=== PATIENT | male | born 1935 | race African-American/Black ===

== ENCOUNTER 2021-04-29 18:08 | Inpatient (IN) | payer OTHER ==
[~2021-04-29] VITALS: Ht 172.7 cm; Wt 89.3 kg
[~2021-04-29 18:08] MED LIST: ASPI-886 PO; BACL10TA PO; CHOL200074 PO; DOCU100C28 PO; DRON2.5C PO; ENOX40DI3 SQ; LISI-517 PO; LORA-169 PO; METF500T16 PO; MULT-245 PO; PANT40GR PO
--- NOTE | 2021-04-29 19:12 | PHYS DOC ---
Past Medical History Past Medical History: Diabetes-Type II, Hypertension Additional Past Medical Histor: Hyperlipidemia,Musc dissuse/atrophy,Quadriplegia,Esophageal Reflux. Past Surgical History: No Surgical History, Other Additional Past Surgical Histo: No surgical hx recorded on [facility] paperwork,pt not able to answer at this time. 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 Patient states for the last 6 days he has had random episodes of vomiting. Patient describes the vomiting as dark brown and liquid. Patient denies any associated abdominal discomfort. Patient also states he has had some very dark stools. correction was concerned about a GI bleed Patient denies any chest pain shortness of breath. Patient has no complaints of nausea at this time. Review of Systems: Review of Systems: Constitutional: Denies fever or chills. [] Eyes: Denies change in visual acuity. [] HENT: Denies nasal congestion or sore throat. [] Respiratory: Denies cough or shortness of breath. [] Cardiovascular: Denies chest pain or edema. [] GI: Denies abdominal pain, , bloody stools or diarrhea. [positive nausea, vomiting] : Denies dysuria. [] Musculoskeletal: Denies back pain or joint pain. [] Integument: Denies rash. [] Neurologic: Denies headache, focal weakness or sensory changes. [] Endocrine: Denies polyuria or polydipsia. [] Lymphatic: Denies swollen glands. [] Psychiatric: Denies depression or anxiety. [] Heart Score: C/O Chest Pain: N/A Risk Factors: Risk Factors: DM, Current or recent (<one month) smoker, HTN, HLP, family history of CAD, obesity. Risk Scores: Score 0 - 3: 2.5% MACE over next 6 weeks - Discharge Home Score 4 - 6: 20.3% MACE over next 6 weeks - Admit for Clinical Observation Score 7 - 10: 72.7% MACE over next 6 weeks - Early Invasive Strategies Allergies: Allergies: Allergies Coded Allergies Type Severity Reaction Last Updated Verified adhesive Allergy Intermediate 06/23/15 Yes terazosin Allergy Intermediate 06/23/15 Yes terazosin HCl Allergy Intermediate 06/23/15 Yes Physical Exam: PE: Constitutional: Well developed, well nourished, no acute distress, non-toxic appearance. [] HENT: Normocephalic, atraumatic, bilateral external ears normal, oropharynx moist, no oral exudates, nose normal. [] Eyes: PERRLA, EOMI, conjunctiva normal, no discharge. [] Neck: Normal range of motion, no tenderness, supple, no stridor. [] Cardiovascular:Heart rate regular rhythm, no murmur [] Lungs & Thorax: Bilateral breath sounds clear to auscultation [] Abdomen: Bowel sounds normal, soft, no tenderness, no masses, no pulsatile masses. [] Skin: Warm, dry, no erythema, no rash. [] Back: No tenderness, no CVA tenderness. [] Extremities: No tenderness, no cyanosis, no clubbing, ROM intact, no edema. [] Neurologic: Alert and oriented X 3, normal motor function, normal sensory function, no focal deficits noted. [] Psychologic: Affect normal, judgement normal, mood normal. [] Current Patient Data: Vital Signs: Vital Signs Date Time Temp Pulse Resp B/P (MAP) Pulse Ox O2 Delivery O2 Flow Rate FiO2 04/29/21 18:10 98.2 88 20 147/94 (111) 100 Room Air 98.2 EKG: EKG: [] Radiology/Procedures: Radiology/Procedures: [] Course & Med Decision Making: Course & Med Decision Making Pertinent Labs and Imaging studies reviewed. (See chart for details) [] Patient was evaluated for chief complaint. Patient has no complaints of pain. Patient states random episodes of nausea and vomiting. Lab work patient found to have creatinine of 2.6 previous creatinines have been within normal limits. Rectal exam performed Hemoccult negative. Patient's hemoglobin is stable. Treatment included IV fluids Protonix and Protonix drip. Patient admitted to the hospitalist for further evaluation and treatment Raúlon Disclaimer: Shanell Disclaimer: This electronic medical record was generated, in whole or in part, using a voice recognition dictation system. Departure Departure Impression: Primary Impression: Acute renal failure syndrome Additional Impression: Nausea and vomiting Disposition: ADMITTED INPATIENT Admitting Physician: HIMS Referrals: JULIANN DELGADILLO MD (PCP) AFIA CLEMENTS DO Apr 29, 2021 19:12
[2021-04-29 19:22] LABS: BASO % 0 % (0-3); EOS # 0.4 x10^3/uL (0.0-0.7); EOS % 4 % (0-3); HEMATOCRIT 32.3 % (39.0-53.0); HEMOGLOBIN 10.8 g/dL (13.0-17.5); LYMPH # 2.7 x10^3/uL (1.0-4.8); LYMPH % 25 % (24-48); MEAN CORPUSCULAR HEMOGLOBIN 31 pg (25-35); MEAN CORPUSCULAR HGB CONC 34 g/dL (31-37); MEAN CORPUSCULAR VOLUME 91 fL (79-100); MONO % 10 % (0-9); NEUT # 6.5 x10^3/uL (1.8-7.7); NEUT % 61 % (31-73); PLATELET COUNT 254 x10^3/uL (140-400); RED BLOOD COUNT 3.55 x10^6/uL (4.30-5.70); RED CELL DISTRIBUTION WIDTH 14.6 % (11.5-14.5); WHITE BLOOD COUNT 10.7 x10^3/uL (4.0-11.0)
[2021-04-29 19:24] LABS: CALCIUM 9.4 mg/dL (8.5-10.1); CREATININE 2.6 mg/dL (0.7-1.3); GFR 28.7; POTASSIUM 4.3 mmol/L (3.5-5.1)
[2021-04-29 19:29] LABS: ALBUMIN 3.6 g/dL (3.4-5.0); ALBUMIN/GLOBULIN RATIO 0.9 (1.0-1.7); TOTAL BILIRUBIN 0.1 mg/dL (0.2-1.0); TOTAL PROTEIN 7.6 g/dL (6.4-8.2)
[2021-04-29] MEDS ORDERED: PANTOPRAZOLE IV PUSH 40 MG VIAL. IVP ONE (20:45)
[2021-04-29 21:24] LABS: FECAL OB PT NEGATIVE (NEG)
[2021-04-29] MEDS: PANTOPRAZOLE SODIUM IV DRIP 80 MG in IV NORMAL SALINE 100ML 100 ML IV SCH (21:28)
[2021-04-29] MEDS ORDERED: ONDANSETRON PF 4 MG/2 ML VIAL. IVP PRN (21:45)
[2021-04-29] MEDS ORDERED: IV NORMAL SALINE 1000ML BAG 1,000 ML IV ONE (22:00)
--- NOTE | 2021-04-29 22:27 | EKG ---
[facility] [address] [place] [address] Test Date: 2021-04-29 Test Time: 18:40:59 Pat Name: TAWANA NETTLES Department: Room: Gender: M Medical Technologist Chief: : 1935 Requested By: AFIA CLEMENTS Order Number: [id number] Reading MD: Measurements Intervals Weinert Rate: 84 P: 55 OK: 192 QRS: 23 QRSD: 84 T: 98 QT: 372 QTc: 443 Interpretive Statements SINUS RHYTHM T ABNORMALITY IN HIGH LATERAL LEADS ABNORMAL ECG RI6.02 No previous ECG available for comparison
[2021-04-29 23:35] VITALS: BP 159/71
[2021-04-30] MEDS ORDERED: ASCO500C PO (00:40)
[2021-04-30] MEDS ORDERED: METF500T16 PO (00:40)
[2021-04-30] MEDS ORDERED: FAMO20TA5 PO (00:40)
[2021-04-30] MEDS ORDERED: ZOLP10TA PO (00:40)
[2021-04-30] MEDS ORDERED: ONDA4TAB7 PO (00:40)
[2021-04-30] MEDS ORDERED: CRAN425C3 PO (00:40)
[2021-04-30] MEDS ORDERED: HYDR-2145 PO (00:40)
[2021-04-30] MEDS ORDERED: FERR325T14 PO (00:40)
[2021-04-30] MEDS ORDERED: SENN8.8S13 PO (00:40)
[2021-04-30] MEDS ORDERED: MULT-246 PO (00:40)
[2021-04-30] MEDS: IV NORMAL SALINE 1000ML BAG 1,000 ML IV SCH ×2 (00:46→13:48)
--- NOTE | 2021-04-30 02:16 | NUR ---
at 04/29/21 2335 patient admitted to 406 from ED. Plan of care discussed with patient and verbalized understanding.
[2021-04-30 03:27] VITALS: BP 140/68
[2021-04-30] MEDS: PANTOPRAZOLE SODIUM IV DRIP 80 MG in IV NORMAL SALINE 100ML 100 ML IV SCH (06:54)
[2021-04-30 07:27] VITALS: BP 147/63
[2021-04-30] MEDS ORDERED: ZOLPIDEM 5 MG TABLET. PO PRN (08:00)
[2021-04-30 08:30] LABS: BASO % 0 % (0-3); EOS # 0.4 x10^3/uL (0.0-0.7); EOS % 5 % (0-3); HEMATOCRIT 30.6 % (39.0-53.0); HEMOGLOBIN 10.1 g/dL (13.0-17.5); LYMPH # 2.9 x10^3/uL (1.0-4.8); LYMPH % 32 % (24-48); MEAN CORPUSCULAR HEMOGLOBIN 30 pg (25-35); MEAN CORPUSCULAR HGB CONC 33 g/dL (31-37); MEAN CORPUSCULAR VOLUME 92 fL (79-100); MONO # 0.9 x10^3/uL (0.0-1.1); MONO % 10 % (0-9); NEUT # 4.7 x10^3/uL (1.8-7.7); NEUT % 53 % (31-73); PLATELET COUNT 221 x10^3/uL (140-400); RED BLOOD COUNT 3.33 x10^6/uL (4.30-5.70)
[2021-04-30 08:48] LABS: ALBUMIN 3.1 g/dL (3.4-5.0); ALBUMIN/GLOBULIN RATIO 0.9 (1.0-1.7); CALCIUM 8.7 mg/dL (8.5-10.1); CREATININE 2.5 mg/dL (0.7-1.3); POTASSIUM 4.2 mmol/L (3.5-5.1); TOTAL BILIRUBIN 0.2 mg/dL (0.2-1.0); TOTAL PROTEIN 6.7 g/dL (6.4-8.2)
[2021-04-30] MEDS ORDERED: FAMOTIDINE 20 MG TABLET. PO SCH (09:00)
--- NOTE | 2021-04-30 09:24 | PDOC2 ---
GI CONSULT Date of Service: DATE: 04/30/21 TIME: 09:23 Reason For Consult: eval GI bleed, n/v, dark stool HPI: HPI: 85 y/o male who reports h/o short-term memory loss. Apparently sent to ER from facility for "dark stools for 2 months." Also mention of vomiting. Labs note Hgb 10.8, MCV 91, BUN 38, Cr 2.6, Hemoccult negative. Summary list includes famotidine and iron. He is eating eggs, toast, and durbin this morning and has PPI drip ordered. No GI concerns per nurse including dark stool or n/v. Pt reports lack of smell and taste x 1 week, some decreased appetite w/ age, and weight loss of 2018 "since the COVID." Also reports "dark brown" stool QOD x 1 week and sometimes vomiting of "liquid" - details unclear, mentions "about twice weekly." H/o reflux - none for awhile. Denies dysphagia, hematemesis, abd pain, diarrhea, constipation, hematochezia, and melena. EGD by Dr. Schulz in 2013 showed erosive esophagitis, mild gastritis, and duodenal ulcers. Path unavailable. Pt reports normal colonoscopy at this facility in the past. Denies GB, liver, and pancreas history. H/o SBO (I believe resolved w/o surgery). 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 Reports was vaccinated for COVID, no test here. Gets out of bed only w/ assistance. PMH: PMH: per chart: CVA, HTN, HLD, COPD, prostate cancer, UTI, DM, MRSA SPC FH: Family History: No pertinent hx Social History: Smoke: Quit ROS: GEN: Denies fevers, chills, sweats HEENT: +lack of smell and taste CV: Denies chest pain RESP: Denies shortness of air, cough GI: Per HPI : Denies hematuria, dysuria ENDO: +weight loss NEURO: +memory loss MSK: +weakness SKIN: Denies jaundice, pruritus Vitals: Vitals: Vital Signs Date Time Temp Pulse Resp B/P (MAP) Pulse Ox O2 Delivery O2 Flow Rate FiO2 04/30/21 07:27 98.4 71 18 147/63 (91) 95 Room Air 98.4 Labs: Labs: Laboratory Tests Test 04/29/21 19:00 04/29/21 21:10 04/30/21 08:10 White Blood Count 10.7 x10^3/uL (4.0-11.0) 9.0 x10^3/uL (4.0-11.0) Red Blood Count 3.55 x10^6/uL (4.30-5.70) 3.33 x10^6/uL (4.30-5.70) Hemoglobin 10.8 g/dL (13.0-17.5) 10.1 g/dL (13.0-17.5) Hematocrit 32.3 % (39.0-53.0) 30.6 % (39.0-53.0) Mean Corpuscular Volume 91 fL (79-100) 92 fL (79-100) Mean Corpuscular Hemoglobin 31 pg (25-35) 30 pg (25-35) Mean Corpuscular Hemoglobin Concent 34 g/dL (31-37) 33 g/dL (31-37) Red Cell Distribution Width 14.6 % (11.5-14.5) 15.0 % (11.5-14.5) Platelet Count 254 x10^3/uL (140-400) 221 x10^3/uL (140-400) Neutrophils (%) (Auto) 61 % (31-73) 53 % (31-73) Lymphocytes (%) (Auto) 25 % (24-48) 32 % (24-48) Monocytes (%) (Auto) 10 % (0-9) 10 % (0-9) Eosinophils (%) (Auto) 4 % (0-3) 5 % (0-3) Basophils (%) (Auto) 0 % (0-3) 0 % (0-3) Neutrophils # (Auto) 6.5 x10^3/uL (1.8-7.7) 4.7 x10^3/uL (1.8-7.7) Lymphocytes # (Auto) 2.7 x10^3/uL (1.0-4.8) 2.9 x10^3/uL (1.0-4.8) Monocytes # (Auto) 1.0 x10^3/uL (0.0-1.1) 0.9 x10^3/uL (0.0-1.1) Eosinophils # (Auto) 0.4 x10^3/uL (0.0-0.7) 0.4 x10^3/uL (0.0-0.7) Basophils # (Auto) 0.0 x10^3/uL (0.0-0.2) 0.0 x10^3/uL (0.0-0.2) Sodium Level 140 mmol/L (136-145) 139 mmol/L (136-145) Potassium Level 4.3 mmol/L (3.5-5.1) 4.2 mmol/L (3.5-5.1) Chloride Level 105 mmol/L (98-107) 107 mmol/L (98-107) Carbon Dioxide Level 24 mmol/L (21-32) 22 mmol/L (21-32) Anion Gap 11 (6-14) 10 (6-14) Blood Urea Nitrogen 38 mg/dL (8-26) 37 mg/dL (8-26) Creatinine 2.6 mg/dL (0.7-1.3) 2.5 mg/dL (0.7-1.3) Estimated GFR (Cockcroft-Gault) 28.7 30.0 BUN/Creatinine Ratio 15 (6-20) 15 (6-20) Glucose Level 74 mg/dL (70-99) 87 mg/dL (70-99) Calcium Level 9.4 mg/dL (8.5-10.1) 8.7 mg/dL (8.5-10.1) Total Bilirubin 0.1 mg/dL (0.2-1.0) 0.2 mg/dL (0.2-1.0) Aspartate Amino Transf (AST/SGOT) 9 U/L (15-37) 9 U/L (15-37) Alanine Aminotransferase (ALT/SGPT) 22 U/L (16-63) 19 U/L (16-63) Alkaline Phosphatase 86 U/L (46-116) 72 U/L (46-116) Troponin I Quantitative < 0.017 ng/mL (0.000-0.055) Total Protein 7.6 g/dL (6.4-8.2) 6.7 g/dL (6.4-8.2) Albumin 3.6 g/dL (3.4-5.0) 3.1 g/dL (3.4-5.0) Albumin/Globulin Ratio 0.9 (1.0-1.7) 0.9 (1.0-1.7) Stool Occult Blood Negative (NEG) Allergies: Coded Allergies: adhesive (Verified Allergy, Intermediate, 06/23/15) All allergies and meds per [place] paperwork. Unk if reaction or allergy. terazosin (Verified Allergy, Intermediate, 06/23/15) Per [place] paperwork, unknow if pt has allergic reaction or adverse reaction. terazosin HCl (Verified Allergy, Intermediate, 06/23/15) Unknown if pt has allergic reaction or adverse reaction. Obtaining meds and allergies per [place] paperwork. Medications: Current Medications Medications (Trade) Dose Ordered Sig/Gail Route PRN Reason Start Time Stop Time Status Last Admin Dose Admin Pantoprazole Sodium (PROTONIX VIAL for IV PUSH) 80 mg 1X ONCE IVP 04/29/21 20:45 04/29/21 20:46 DC 04/29/21 21:27 Pantoprazole Sodium 80 mg/ Sodium Chloride 100 ml @ 10 mls/hr Q10H IV 04/29/21 20:45 05/02/21 20:44 04/30/21 06:54 Sodium Chloride 1,000 ml @ 1,000 mls/hr 1X ONCE IV 04/29/21 22:00 04/29/21 22:59 DC 04/29/21 21:27 Sodium Chloride 1,000 ml @ 75 mls/hr [id number] IV 04/29/21 22:00 04/30/21 21:59 04/30/21 00:46 Famotidine (Pepcid) 20 mg DAILY PO 04/30/21 09:00 04/30/21 08:51 Imaging: Imaging: none this admission PE: GEN: NAD HEENT: Atraumatic, PERRL LUNGS: CTAB HEART: RRR ABD: NABS, S/ND/NT EXTREMITY: generalized weakness SKIN: No rashes, no jaundice NEURO/PSYCH: A & O 3 A/P: A/P: "Dark stool" and vomiting - not an issue since admission Normocytic anemia, EMILY, Hemoccult negative - anemia noted in past ([id number] last labs here) - ?on iron H/o GERD, PUD - ?on H2 isis Decreased appetite, weight loss - vague history EGD by Dr. Schulz in 2013 showed erosive esophagitis, mild gastritis, and duodenal ulcers. Path unavailable. CRC screen - reportedly normal in the past DM -- Eating regular diet. Will check anemia parameters. 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 Apparently on iron as outpt, considering restarting. Observe GI-kowalski, consider outpt follow-up/scopes. Note nephrology is asked to see. DC per primary. TESSY MOTA Apr 30, 2021 09:24
--- NOTE | 2021-04-30 10:19 | PDOC1 ---
History and Physical Date of Service: DOS: DATE: 04/30/21 TIME: 10:19 Chief Complaint: Problems: (1) Acute renal failure syndrome (2) Nausea and vomiting Chief Complain: Nausea vomiting History of Present Illness: HPI: Patient is an 85-year-old male [facility] due to concern for GI bleed. Patient reports that over the past week or so he has been having multiple episodes of nausea and vomiting. Unable to tolerate a notable amount of p.o. intake. Was also having diarrhea with stools darker than usual. Denying any sort of abdominal discomfort. Unknown if labs performed at his longterm however was transferred here due to concern for GI bleed. In emergency room hemoglobin was normal. He was provided Protonix and IV fluids. When evaluated at bedside this morning patient was in bed eating breakfast. Hemoglobin been stable since presentation. Found to have elevated creatinine baseline unknown to me. Consulting to GI and nephrology. He is denying any headache, vision changes, dizziness, chest pain, shortness of breath, abdominal pain, dysuria. Past Medical/Surgical History: PMH/PSH: Type 2 diabetes, hypertension, CVA with residual weakness Allergies: Allergies: Coded Allergies: adhesive (Verified Allergy, Intermediate, 06/23/15) All allergies and meds per [place] paperwork. Unk if reaction or allergy. terazosin (Verified Allergy, Intermediate, 06/23/15) Per [place] paperwork, unknow if pt has allergic reaction or adverse reaction. terazosin HCl (Verified Allergy, Intermediate, 06/23/15) Unknown if pt has allergic reaction or adverse reaction. Obtaining meds and allergies per [place] paperwork. Family History: Family History: Noncontributory Social History: Social History: No alcohol tobacco or drug use Current Medications: Current Medications Current Medications Pantoprazole Sodium (PROTONIX VIAL for IV PUSH) 80 mg 1X ONCE IVP Last administered on 04/29/21at 21:27; Start 04/29/21 at 20:45; Stop 04/29/21 at 20:46; Status DC Pantoprazole Sodium 80 mg/ Sodium Chloride 100 ml @ 10 mls/hr Q10H IV Last administered on 04/30/21at 06:54; Start 04/29/21 at 20:45; Stop 04/30/21 at 09:28; Status DC Sodium Chloride 1,000 ml @ 1,000 mls/hr 1X ONCE IV Last administered on 04/29/21at 21:27; Start 04/29/21 at 22:00; Stop 04/29/21 at 22:59; Status DC Ondansetron HCl (Zofran) 4 mg PRN Q8HRS PRN IVP NAUSEA/VOMITING 1ST CHOICE; Start 04/29/21 at 21:45; Stop 04/30/21 at 21:44 Sodium Chloride 1,000 ml @ 75 mls/hr [id number] IV Last administered on 04/30/21at 00:46; Start 04/29/21 at 22:00; Stop 04/30/21 at 21:59 Famotidine (Pepcid) 20 mg DAILY PO Last administered on 04/30/21at 08:51; Start 04/30/21 at 09:00; Stop 04/30/21 at 09:28; Status DC Zolpidem Tartrate (Ambien) 5 mg PRN QHS PRN PO INSOMNIA; Start 04/30/21 at 08:00 Pantoprazole Sodium (Protonix) 40 mg DAILYAC PO ; Start 05/01/21 at 07:30 Active Scripts Active Reported Zofran (Ondansetron Hcl) 4 Mg Tablet 1 Tab PO PRN Q6-8HRS Senna (Sennosides) 8.8 Mg/5 Ml Syrup 8.8 Mg PO DAILY PRN Multi-Vitamin Daily (Multivitamin) 1 Each Tablet 1 Tab PO DAILY 30 Days Metformin Hcl 500 Mg Tablet 500 Mg PO TIDWMEALS Hydrochlorothiazide Tablet (Hydrochlorothiazide) 25 Mg Tablet 25 Mg PO DAILY Ferrous Sulfate 325 Mg Tablet 1 Tab PO DAILY Famotidine 20 Mg Tablet 20 Mg PO DAILY Cranberry (Cranberry Extract) 425 Mg Capsule 425 Mg PO BID Vitamin C (Ascorbic Acid) 500 Mg Capsule.er 1 Cap PO BID 30 Days Ambien (Zolpidem Tartrate) 10 Mg Tablet 10 Mg PO PRN QHS PRN ROS: Review of Systems Review of System Negative unless in HPI Physical Exam: Vital Signs: Vital Signs Date Time Temp Pulse Resp B/P (MAP) Pulse Ox O2 Delivery O2 Flow Rate FiO2 04/30/21 07:27 98.4 71 18 147/63 (91) 95 Room Air 98.4 Physcial Exam: GEN: No apparent distress. Alert and oriented HEENT: Normal cephalic, atraumatic, external auditory canals are patent EYES: Extraocular muscles are intact, pupil are equally round and reactive to light and accommodation MUSCULOSKELETAL: Limited range of motion ENDOCRINE: No thyromegaly was palpated LYMPHATICS: No cervical chain or axillary nodes were noted HEMATOPOIETIC: No bruising NECK: Supple, no JVD, no thyromegaly was noted LUNGS: Clear to auscultation in all lung han without rhonchi or wheezing HEART: RRR, S1, S2 present. Peripheral pulses intact, no obvious murmurs noted ABDOMEN: Soft, nontender. Positive bowel sounds, no organomegaly, normal bowel sounds EXTREMITIES: Without clubbing, cyanosis, or edema. Pedal pulses intact. Negative Homans sign NEUROLOGIC: Residual deficits from previous CVA present PSYCHIATRIC: Normal affect, normal mood. Stable SKIN: No ulcerations or rashes, good skin turgor, no jaundice VASCULAR: Good capillary refill, neurovascular bundle appears to be intact Labs: Labs: Laboratory Tests Test 04/29/21 19:00 04/29/21 21:10 04/30/21 08:10 White Blood Count 10.7 x10^3/uL (4.0-11.0) 9.0 x10^3/uL (4.0-11.0) Red Blood Count 3.55 x10^6/uL (4.30-5.70) 3.33 x10^6/uL (4.30-5.70) Hemoglobin 10.8 g/dL (13.0-17.5) 10.1 g/dL (13.0-17.5) Hematocrit 32.3 % (39.0-53.0) 30.6 % (39.0-53.0) Mean Corpuscular Volume 91 fL (79-100) 92 fL (79-100) Mean Corpuscular Hemoglobin 31 pg (25-35) 30 pg (25-35) Mean Corpuscular Hemoglobin Concent 34 g/dL (31-37) 33 g/dL (31-37) Red Cell Distribution Width 14.6 % (11.5-14.5) 15.0 % (11.5-14.5) Platelet Count 254 x10^3/uL (140-400) 221 x10^3/uL (140-400) Neutrophils (%) (Auto) 61 % (31-73) 53 % (31-73) Lymphocytes (%) (Auto) 25 % (24-48) 32 % (24-48) Monocytes (%) (Auto) 10 % (0-9) 10 % (0-9) Eosinophils (%) (Auto) 4 % (0-3) 5 % (0-3) Basophils (%) (Auto) 0 % (0-3) 0 % (0-3) Neutrophils # (Auto) 6.5 x10^3/uL (1.8-7.7) 4.7 x10^3/uL (1.8-7.7) Lymphocytes # (Auto) 2.7 x10^3/uL (1.0-4.8) 2.9 x10^3/uL (1.0-4.8) Monocytes # (Auto) 1.0 x10^3/uL (0.0-1.1) 0.9 x10^3/uL (0.0-1.1) Eosinophils # (Auto) 0.4 x10^3/uL (0.0-0.7) 0.4 x10^3/uL (0.0-0.7) Basophils # (Auto) 0.0 x10^3/uL (0.0-0.2) 0.0 x10^3/uL (0.0-0.2) Sodium Level 140 mmol/L (136-145) 139 mmol/L (136-145) Potassium Level 4.3 mmol/L (3.5-5.1) 4.2 mmol/L (3.5-5.1) Chloride Level 105 mmol/L (98-107) 107 mmol/L (98-107) Carbon Dioxide Level 24 mmol/L (21-32) 22 mmol/L (21-32) Anion Gap 11 (6-14) 10 (6-14) Blood Urea Nitrogen 38 mg/dL (8-26) 37 mg/dL (8-26) Creatinine 2.6 mg/dL (0.7-1.3) 2.5 mg/dL (0.7-1.3) Estimated GFR (Cockcroft-Gault) 28.7 30.0 BUN/Creatinine Ratio 15 (6-20) 15 (6-20) Glucose Level 74 mg/dL (70-99) 87 mg/dL (70-99) Calcium Level 9.4 mg/dL (8.5-10.1) 8.7 mg/dL (8.5-10.1) Total Bilirubin 0.1 mg/dL (0.2-1.0) 0.2 mg/dL (0.2-1.0) Aspartate Amino Transf (AST/SGOT) 9 U/L (15-37) 9 U/L (15-37) Alanine Aminotransferase (ALT/SGPT) 22 U/L (16-63) 19 U/L (16-63) Alkaline Phosphatase 86 U/L (46-116) 72 U/L (46-116) Troponin I Quantitative < 0.017 ng/mL (0.000-0.055) Total Protein 7.6 g/dL (6.4-8.2) 6.7 g/dL (6.4-8.2) Albumin 3.6 g/dL (3.4-5.0) 3.1 g/dL (3.4-5.0) Albumin/Globulin Ratio 0.9 (1.0-1.7) 0.9 (1.0-1.7) Stool Occult Blood Negative (NEG) Laboratory Tests Test 04/29/21 19:00 04/29/21 21:10 04/30/21 08:10 White Blood Count 10.7 x10^3/uL (4.0-11.0) 9.0 x10^3/uL (4.0-11.0) Red Blood Count 3.55 x10^6/uL (4.30-5.70) 3.33 x10^6/uL (4.30-5.70) Hemoglobin 10.8 g/dL (13.0-17.5) 10.1 g/dL (13.0-17.5) Hematocrit 32.3 % (39.0-53.0) 30.6 % (39.0-53.0) Mean Corpuscular Volume 91 fL (79-100) 92 fL (79-100) Mean Corpuscular Hemoglobin 31 pg (25-35) 30 pg (25-35) Mean Corpuscular Hemoglobin Concent 34 g/dL (31-37) 33 g/dL (31-37) Red Cell Distribution Width 14.6 % (11.5-14.5) 15.0 % (11.5-14.5) Platelet Count 254 x10^3/uL (140-400) 221 x10^3/uL (140-400) Neutrophils (%) (Auto) 61 % (31-73) 53 % (31-73) Lymphocytes (%) (Auto) 25 % (24-48) 32 % (24-48) Monocytes (%) (Auto) 10 % (0-9) 10 % (0-9) Eosinophils (%) (Auto) 4 % (0-3) 5 % (0-3) Basophils (%) (Auto) 0 % (0-3) 0 % (0-3) Neutrophils # (Auto) 6.5 x10^3/uL (1.8-7.7) 4.7 x10^3/uL (1.8-7.7) Lymphocytes # (Auto) 2.7 x10^3/uL (1.0-4.8) 2.9 x10^3/uL (1.0-4.8) Monocytes # (Auto) 1.0 x10^3/uL (0.0-1.1) 0.9 x10^3/uL (0.0-1.1) Eosinophils # (Auto) 0.4 x10^3/uL (0.0-0.7) 0.4 x10^3/uL (0.0-0.7) Basophils # (Auto) 0.0 x10^3/uL (0.0-0.2) 0.0 x10^3/uL (0.0-0.2) Sodium Level 140 mmol/L (136-145) 139 mmol/L (136-145) Potassium Level 4.3 mmol/L (3.5-5.1) 4.2 mmol/L (3.5-5.1) Chloride Level 105 mmol/L (98-107) 107 mmol/L (98-107) Carbon Dioxide Level 24 mmol/L (21-32) 22 mmol/L (21-32) Anion Gap 11 (6-14) 10 (6-14) Blood Urea Nitrogen 38 mg/dL (8-26) 37 mg/dL (8-26) Creatinine 2.6 mg/dL (0.7-1.3) 2.5 mg/dL (0.7-1.3) Estimated GFR (Cockcroft-Gault) 28.7 30.0 BUN/Creatinine Ratio 15 (6-20) 15 (6-20) Glucose Level 74 mg/dL (70-99) 87 mg/dL (70-99) Calcium Level 9.4 mg/dL (8.5-10.1) 8.7 mg/dL (8.5-10.1) Total Bilirubin 0.1 mg/dL (0.2-1.0) 0.2 mg/dL (0.2-1.0) Aspartate Amino Transf (AST/SGOT) 9 U/L (15-37) 9 U/L (15-37) Alanine Aminotransferase (ALT/SGPT) 22 U/L (16-63) 19 U/L (16-63) Alkaline Phosphatase 86 U/L (46-116) 72 U/L (46-116) Troponin I Quantitative < 0.017 ng/mL (0.000-0.055) Total Protein 7.6 g/dL (6.4-8.2) 6.7 g/dL (6.4-8.2) Albumin 3.6 g/dL (3.4-5.0) 3.1 g/dL (3.4-5.0) Albumin/Globulin Ratio 0.9 (1.0-1.7) 0.9 (1.0-1.7) Stool Occult Blood Negative (NEG) Assessment/Plan Assessment/Plan EMILY likely vasomotor nephropathy, dehydration, nausea vomiting, history of CVA, type 2 diabetes, hypertension -Patient's hemoglobin stable since presentation no sign of GI bleed -Evaluated by GI recommended oral PPI and resuming home iron -Patient with elevated creatinine on presentation and. Unknown baseline. Nephrology consulted -Home meds resumed as indicated -Will go back to facility after discharge -DVT prophylaxis -Diet as tolerated Justifications for Admission Other Justification CHARLEY HAN MD Apr 30, 2021 10:19
[2021-04-30 10:33] VITALS: BP 108/57
--- NOTE | 2021-04-30 12:38 | PDOC2 ---
CONSULT Date of Consult Date of Consult DATE: 04/30/21 TIME: 12:20 Reason for Consult Reason for Consult: EMILY Referring Physician Referring Physician: Dr. 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 Patient states for the last 6 days he has had random episodes of vomiting. Patient describes the vomiting as dark brown and liquid. Patient denies any associated abdominal discomfort. Patient also states he has had some very dark stools. half-way was concerned about a GI bleed He denies any chest pain ,shortness of breath or Cough denies any F/C. Has Suprapubic catheter - reports normal UOP, No foul smell or cloudy urine . Denies any LE edema . denies use of NSAID's. Doesnt know his current meds . [facility] currently denies any N/V, states feeling better . He had Breakfast this morning Reports was vaccinated for COVID Past Medical History Past Medical History CVA, HTN, HLD, COPD, prostate cancer, UTI, DM, MRSA Cardiovascular: HTN, Hyperlipidemia GI: GERD Musculoskeletal: Muscle atrophy Renal/: No pertinent hx Endocrine: Diabetes Past Surgical History Past Surgical History Suprapubic catheter Family History Family History Non contributory Family History: Other Social History Quit Lives: Snf Current Problem List Problem List Problems Medical Problems: (1) Nausea and vomiting Status: Acute Current Medications Current Medications Current Medications Pantoprazole Sodium (PROTONIX VIAL for IV PUSH) 80 mg 1X ONCE IVP Last adminis tered on 04/29/21at 21:27; Start 04/29/21 at 20:45; Stop 04/29/21 at 20:46; Status DC Pantoprazole Sodium 80 mg/ Sodium Chloride 100 ml @ 10 mls/hr Q10H IV Last administered on 04/30/21at 06:54; Start 04/29/21 at 20:45; Stop 04/30/21 at 09:28; Status DC Sodium Chloride 1,000 ml @ 1,000 mls/hr 1X ONCE IV Last administered on 04/29/21at 21:27; Start 04/29/21 at 22:00; Stop 04/29/21 at 22:59; Status DC Ondansetron HCl (Zofran) 4 mg PRN Q8HRS PRN IVP NAUSEA/VOMITING 1ST CHOICE; Start 04/29/21 at 21:45; Stop 04/30/21 at 21:44 Sodium Chloride 1,000 ml @ 75 mls/hr [id number] IV Last administered on 04/30/21at 00:46; Start 04/29/21 at 22:00; Stop 04/30/21 at 21:59 Famotidine (Pepcid) 20 mg DAILY PO Last administered on 04/30/21at 08:51; Start 04/30/21 at 09:00; Stop 04/30/21 at 09:28; Status DC Zolpidem Tartrate (Ambien) 5 mg PRN QHS PRN PO INSOMNIA; Start 04/30/21 at 08:00 Pantoprazole Sodium (Protonix) 40 mg DAILYAC PO ; Start 05/01/21 at 07:30 Active Scripts Active Reported Zofran (Ondansetron Hcl) 4 Mg Tablet 1 Tab PO PRN Q6-8HRS Senna (Sennosides) 8.8 Mg/5 Ml Syrup 8.8 Mg PO DAILY PRN Multi-Vitamin Daily (Multivitamin) 1 Each Tablet 1 Tab PO DAILY 30 Days Metformin Hcl 500 Mg Tablet 500 Mg PO TIDWMEALS Hydrochlorothiazide Tablet (Hydrochlorothiazide) 25 Mg Tablet 25 Mg PO DAILY Ferrous Sulfate 325 Mg Tablet 1 Tab PO DAILY Famotidine 20 Mg Tablet 20 Mg PO DAILY Cranberry (Cranberry Extract) 425 Mg Capsule 425 Mg PO BID Vitamin C (Ascorbic Acid) 500 Mg Capsule.er 1 Cap PO BID 30 Days Ambien (Zolpidem Tartrate) 10 Mg Tablet 10 Mg PO PRN QHS PRN Allergies Allergies: Coded Allergies: adhesive (Verified Allergy, Intermediate, 06/23/15) All allergies and meds per [place] paperwork. Unk if reaction or allergy. terazosin (Verified Allergy, Intermediate, 06/23/15) Per [place] paperwork, unknow if pt has allergic reaction or adverse reaction. terazosin HCl (Verified Allergy, Intermediate, 06/23/15) Unknown if pt has allergic reaction or adverse reaction. Obtaining meds and allergies per [place] paperwork. ROS Review of System As per HPI, rest of the ROS is negative Physical Exam Physical Exam General NAD HEEN OM moist, On RA Neck Supple Lungs CTA , non labored CV S1S2, RRR Abd Soft, NT , obese, BS + Neuro Grossly Normal, AXOx3, No focal deficit Derm No rash Ext No LE edema has Suprapubic catheter , No CVA or S tenderness Psych Cooperative , stable Vital Signs Vital Signs Date Time Temp Pulse Resp B/P (MAP) Pulse Ox O2 Delivery O2 Flow Rate FiO2 04/30/21 10:33 97.5 96 18 108/57 (74) 99 Room Air 97.5 Assessment & Plan EMILY - Vasomotor, admitted with N/V . Supportive care, IVF , avoid Nephrotoxins, strict I/O . Further jones including UA and Renal US if no improvement with IVF ? CKD baseline unknown, baseline Cr in 2012 0.8-0.9, No interval labs. 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 prostate cancer . Catheter changed on 04/12 HTN- on HCTZ per home med list . Hold HCTZ DM - On metformin at home Anemia-/ Chronic- ferrous sulfate listed in home med list Labs Labs Laboratory Tests Test 04/29/21 19:00 04/29/21 21:10 04/30/21 08:10 White Blood Count 10.7 x10^3/uL (4.0-11.0) 9.0 x10^3/uL (4.0-11.0) Red Blood Count 3.55 x10^6/uL (4.30-5.70) 3.29 x10^6/uL (4.30-5.70) Hemoglobin 10.8 g/dL (13.0-17.5) 10.1 g/dL (13.0-17.5) Hematocrit 32.3 % (39.0-53.0) 30.6 % (39.0-53.0) Mean Corpuscular Volume 91 fL (79-100) 92 fL (79-100) Mean Corpuscular Hemoglobin 31 pg (25-35) 30 pg (25-35) Mean Corpuscular Hemoglobin Concent 34 g/dL (31-37) 33 g/dL (31-37) Red Cell Distribution Width 14.6 % (11.5-14.5) 15.0 % (11.5-14.5) Platelet Count 254 x10^3/uL (140-400) 221 x10^3/uL (140-400) Neutrophils (%) (Auto) 61 % (31-73) 53 % (31-73) Lymphocytes (%) (Auto) 25 % (24-48) 32 % (24-48) Monocytes (%) (Auto) 10 % (0-9) 10 % (0-9) Eosinophils (%) (Auto) 4 % (0-3) 5 % (0-3) Basophils (%) (Auto) 0 % (0-3) 0 % (0-3) Neutrophils # (Auto) 6.5 x10^3/uL (1.8-7.7) 4.7 x10^3/uL (1.8-7.7) Lymphocytes # (Auto) 2.7 x10^3/uL (1.0-4.8) 2.9 x10^3/uL (1.0-4.8) Monocytes # (Auto) 1.0 x10^3/uL (0.0-1.1) 0.9 x10^3/uL (0.0-1.1) Eosinophils # (Auto) 0.4 x10^3/uL (0.0-0.7) 0.4 x10^3/uL (0.0-0.7) Basophils # (Auto) 0.0 x10^3/uL (0.0-0.2) 0.0 x10^3/uL (0.0-0.2) Sodium Level 140 mmol/L (136-145) 139 mmol/L (136-145) Potassium Level 4.3 mmol/L (3.5-5.1) 4.2 mmol/L (3.5-5.1) Chloride Level 105 mmol/L (98-107) 107 mmol/L (98-107) Carbon Dioxide Level 24 mmol/L (21-32) 22 mmol/L (21-32) Anion Gap 11 (6-14) 10 (6-14) Blood Urea Nitrogen 38 mg/dL (8-26) 37 mg/dL (8-26) Creatinine 2.6 mg/dL (0.7-1.3) 2.5 mg/dL (0.7-1.3) Estimated GFR (Cockcroft-Gault) 28.7 30.0 BUN/Creatinine Ratio 15 (6-20) 15 (6-20) Glucose Level 74 mg/dL (70-99) 87 mg/dL (70-99) Calcium Level 9.4 mg/dL (8.5-10.1) 8.7 mg/dL (8.5-10.1) Total Bilirubin 0.1 mg/dL (0.2-1.0) 0.2 mg/dL (0.2-1.0) Aspartate Amino Transf (AST/SGOT) 9 U/L (15-37) 9 U/L (15-37) Alanine Aminotransferase (ALT/SGPT) 22 U/L (16-63) 19 U/L (16-63) Alkaline Phosphatase 86 U/L (46-116) 72 U/L (46-116) Troponin I Quantitative < 0.017 ng/mL (0.000-0.055) Total Protein 7.6 g/dL (6.4-8.2) 6.7 g/dL (6.4-8.2) Albumin 3.6 g/dL (3.4-5.0) 3.1 g/dL (3.4-5.0) Albumin/Globulin Ratio 0.9 (1.0-1.7) 0.9 (1.0-1.7) Stool Occult Blood Negative (NEG) Absolute Reticulocyte Count 0.031 x10^6/uL (0.020-0.120) Percent Reticulocyte Count 1.0 % (0.5-2.3) Immature Reticulocyte Fraction 0.40 (0.20-0.60) Iron Level 49 ug/dL (65-175) Total Iron Binding Capacity 257 ug/dL (250-450) Iron Saturation 19 % (15-34) Laboratory Tests Test 04/29/21 19:00 04/29/21 21:10 04/30/21 08:10 White Blood Count 10.7 x10^3/uL (4.0-11.0) 9.0 x10^3/uL (4.0-11.0) Red Blood Count 3.55 x10^6/uL (4.30-5.70) 3.29 x10^6/uL (4.30-5.70) Hemoglobin 10.8 g/dL (13.0-17.5) 10.1 g/dL (13.0-17.5) Hematocrit 32.3 % (39.0-53.0) 30.6 % (39.0-53.0) Mean Corpuscular Volume 91 fL (79-100) 92 fL (79-100) Mean Corpuscular Hemoglobin 31 pg (25-35) 30 pg (25-35) Mean Corpuscular Hemoglobin Concent 34 g/dL (31-37) 33 g/dL (31-37) Red Cell Distribution Width 14.6 % (11.5-14.5) 15.0 % (11.5-14.5) Platelet Count 254 x10^3/uL (140-400) 221 x10^3/uL (140-400) Neutrophils (%) (Auto) 61 % (31-73) 53 % (31-73) Lymphocytes (%) (Auto) 25 % (24-48) 32 % (24-48) Monocytes (%) (Auto) 10 % (0-9) 10 % (0-9) Eosinophils (%) (Auto) 4 % (0-3) 5 % (0-3) Basophils (%) (Auto) 0 % (0-3) 0 % (0-3) Neutrophils # (Auto) 6.5 x10^3/uL (1.8-7.7) 4.7 x10^3/uL (1.8-7.7) Lymphocytes # (Auto) 2.7 x10^3/uL (1.0-4.8) 2.9 x10^3/uL (1.0-4.8) Monocytes # (Auto) 1.0 x10^3/uL (0.0-1.1) 0.9 x10^3/uL (0.0-1.1) Eosinophils # (Auto) 0.4 x10^3/uL (0.0-0.7) 0.4 x10^3/uL (0.0-0.7) Basophils # (Auto) 0.0 x10^3/uL (0.0-0.2) 0.0 x10^3/uL (0.0-0.2) Sodium Level 140 mmol/L (136-145) 139 mmol/L (136-145) Potassium Level 4.3 mmol/L (3.5-5.1) 4.2 mmol/L (3.5-5.1) Chloride Level 105 mmol/L (98-107) 107 mmol/L (98-107) Carbon Dioxide Level 24 mmol/L (21-32) 22 mmol/L (21-32) Anion Gap 11 (6-14) 10 (6-14) Blood Urea Nitrogen 38 mg/dL (8-26) 37 mg/dL (8-26) Creatinine 2.6 mg/dL (0.7-1.3) 2.5 mg/dL (0.7-1.3) Estimated GFR (Cockcroft-Gault) 28.7 30.0 BUN/Creatinine Ratio 15 (6-20) 15 (6-20) Glucose Level 74 mg/dL (70-99) 87 mg/dL (70-99) Calcium Level 9.4 mg/dL (8.5-10.1) 8.7 mg/dL (8.5-10.1) Total Bilirubin 0.1 mg/dL (0.2-1.0) 0.2 mg/dL (0.2-1.0) Aspartate Amino Transf (AST/SGOT) 9 U/L (15-37) 9 U/L (15-37) Alanine Aminotransferase (ALT/SGPT) 22 U/L (16-63) 19 U/L (16-63) Alkaline Phosphatase 86 U/L (46-116) 72 U/L (46-116) Troponin I Quantitative < 0.017 ng/mL (0.000-0.055) Total Protein 7.6 g/dL (6.4-8.2) 6.7 g/dL (6.4-8.2) Albumin 3.6 g/dL (3.4-5.0) 3.1 g/dL (3.4-5.0) Albumin/Globulin Ratio 0.9 (1.0-1.7) 0.9 (1.0-1.7) Stool Occult Blood Negative (NEG) Absolute Reticulocyte Count 0.031 x10^6/uL (0.020-0.120) Percent Reticulocyte Count 1.0 % (0.5-2.3) Immature Reticulocyte Fraction 0.40 (0.20-0.60) Iron Level 49 ug/dL (65-175) Total Iron Binding Capacity 257 ug/dL (250-450) Iron Saturation 19 % (15-34) Review All relevant outside records, renal labs, imaging studies, telemetry/EKG's were reviewed. ARDEN MARIE MD Apr 30, 2021 12:38
--- NOTE | 2021-04-30 12:51 | NUR ---
SW following. Discussed with RN, pt from [facility]. SW unable to reach anyone at [facility] to determine if pt is SNF or meterman care. Pt on room air, renal diet. GI, Nephrology and wound care folliwng. SW will continue to follow.
[2021-04-30] MEDS: NYSTATIN TOPICAL POWDER 15GM BOTTLE. TP SCH ×2 (14:15→20:52)
[2021-04-30 15:00] VITALS: BP 133/58
--- NOTE | 2021-04-30 15:15 | NUR ---
Wound Care Wound Type/Assessment: Consult to eval and treat R groin wound. Scrotum is enlarged, but not indurated, as well as a large, soft mass in the R inguinal area. Pt states that the mass and R groin wound have been present for around 3 years, and have remained unchanged, and are not causing any discomfort or impairing his quality of life. R groin wound is pink, moist, and hypergranulated. The origin of the wound is unknown due to the length of time it has been present, although it is suspected that it likely started as intertrigo and never healed properly. Skin to legs and feet are dry and scaly. No other wounds noted on head to toe. Treatment Recommendations/Plan: R groin: Cleanse and dry. Apply nystatin powder to groin folds BID and place ABD pad to manage moisture. Education provided: Educated on new dressing and pressure ulcer prevention. Offloading surface/device: Purple wedge, turned Left. Heels floated on pillows. Recommended Referrals/Tests: NA Discharge Recommendations for dressings: as above
[2021-04-30 19:00] VITALS: BP 153/77
[2021-04-30 22:38] LABS: BILIRUBIN,URINE NEGATIVE (NEG); CLARITY,URINE CLOUDY; COLOR,URINE YELLOW; NITRITE,URINE POSITIVE (NEG); PH,URINE 6.5 (<5.0-8.0); PROTEIN,URINE NEGATIVE (NEG-TRACE)
[2021-04-30 22:48] LABS: AMORPHOUS SEDIMENT,UR PRESENT /HPF; BACTERIA,URINE MANY /HPF (0-FEW); WBC,URINE TNTC /HPF (0-4)
[2021-04-30 23:00] VITALS: BP 150/60
[2021-05-01 03:00] VITALS: BP 145/49
[2021-05-01 07:00] VITALS: BP 163/75
[2021-05-01] MEDS: PANTOPRAZOLE 40 MG TABLET.DR. PO SCH (09:31)
[2021-05-01] MEDS: NYSTATIN TOPICAL POWDER 15GM BOTTLE. TP SCH ×2 (09:32→21:21)
[2021-05-01 11:00] VITALS: BP 153/67
--- NOTE | 2021-05-01 12:02 | PDOC ---
[employer] PROGRESS NOTE Date of Service DOS: DATE: 05/01/21 TIME: 12:01 Chief Complaint Chief Complaint Nausea vomiting History of Present Illness History of Present Illness Patient is an 85-year-old male [facility]. Patient reports that over the past week or so he has been having multiple episodes of nausea and vomiting. Unable to tolerate a notable amount of p.o. intake. Was also having diarrhea with stools darker than usual. Denying any sort of abdominal discomfort. Unknown if labs performed at his skilled nursing however was transferred here due to concern for GI bleed. In emergency room hemoglobin was normal. He was provided Protonix and IV fluids. When evaluated at bedside this morning patient was in bed eating breakfast. Hemoglobin been stable since presentation. Found to have elevated creatinine baseline unknown to me. Consulting to GI and nephrology. He is denying any headache, vision changes, dizziness, chest pain, shortness of breath, abdominal pain, dysuria. 05/01 Evaluated at bedside, doing well this morning. Creatinine does remain elevated still. Nephrology following. Vitals/I&O Vitals/I&O: Vital Signs Date Time Temp Pulse Resp B/P (MAP) Pulse Ox O2 Delivery O2 Flow Rate FiO2 05/01/21 11:00 98.2 89 18 153/67 (95) 96 Room Air 98.2 I & O 0 04/30/21 04/30/21 05/01/21 15:00 23:00 07:00 Intake Total 600 ml 100 ml 1000 ml Output Total 950 ml 1500 ml Balance -350 ml 100 ml -500 ml Physical Exam General: Alert, Oriented X3, Cooperative Heart: Regular rate, Normal S1, Normal S2 Lungs: Clear, Other Abdomen: Normal bowel sounds, Soft, No tenderness Extremities: No edema, Normal pulses Skin: No significant lesion Labs Labs: Laboratory Tests Test 04/30/21 22:25 Urine Collection Type Unknown Urine Color Yellow Urine Clarity Cloudy Urine pH 6.5 (<5.0-8.0) Urine Specific [place] 1.010 (1.000-1.030) Urine Protein Negative mg/dL (NEG-TRACE) Urine Glucose (UA) Negative mg/dL (NEG) Urine Ketones (Stick) Negative mg/dL (NEG) Urine Blood Trace (NEG) Urine Nitrite Positive (NEG) Urine Bilirubin Negative (NEG) Urine Urobilinogen Dipstick 1.0 mg/dL (0.2 mg/dL) Urine Leukocyte Esterase Large (NEG) Urine RBC 3-5 /HPF (0-2) Urine WBC Tntc /HPF (0-4) Urine Squamous Epithelial Cells Few /LPF Urine Amorphous Sediment Present /HPF Urine Bacteria Many /HPF (0-FEW) Urine Mucus Slight /LPF Assessment and Plan Assessmemt and Plan Problems Medical Problems: (1) Nausea and vomiting Status: Acute EMILY likely vasomotor nephropathy, dehydration, nausea vomiting, history of CVA, type 2 diabetes, hypertension -Patient's hemoglobin stable since presentation no sign of GI bleed -Evaluated by GI recommended oral PPI and resuming home iron -Patient with elevated creatinine on presentation and. Unknown baseline. Nephrology consulted -Home meds resumed as indicated -Will go back to facility after discharge -DVT prophylaxis -Diet as tolerated Comment Review of Relevant I have reviewed the following items mag (where applicable) has been applied. Medications: Current Medications Medications (Trade) Dose Ordered Sig/Gail Route PRN Reason Start Time Stop Time Status Last Admin Dose Admin Pantoprazole Sodium (Protonix) 40 mg DAILYAC PO 05/01/21 07:30 05/01/21 09:31 Nystatin (Nystop) 1 john BID TP 04/30/21 14:15 05/01/21 09:32 Justifications for Admission Other Justification CHARLEY HAN MD May 01, 2021 12:02
--- NOTE | 2021-05-01 14:02 | PDOC ---
DATE OF SERVICE: DOS: DATE: 05/01/21 TIME: 13:58 SUBJECTIVE ROS Follow-up for acute kidney injury Patient denies any new complaints CVS: no Orthopnea, no CP RESP: no SOB, no PASCUAL GI: no Nausea, no Vomiting : no Dysuria, no Urgency OBJECTIVE Vital Signs Vital Signs Date Time Temp Pulse Resp B/P (MAP) Pulse Ox O2 Delivery O2 Flow Rate FiO2 05/01/21 11:00 98.2 89 18 153/67 (95) 96 Room Air 98.2 I & 0 Intake and Output 05/01/21 07:00 Intake Total 1700 ml Output Total 2450 ml Balance -750 ml Intake Oral 600 ml IV Total 1100 ml Output Urine Total 2450 ml PHYSICAL EXAM Physical Exam GEN: Awake, Oriented x 2, In no distress EYES: Vision Unchanged, Conjunctiva Normal EN: No EN Drainage, Mucous Membranes moist NECK: no JVD, no JVP, Supple, no Thyromegaly CVS: S1S2, ? Murmur, No Gallop, No Rub,no Edema RESP: no Rales, no Rhonchi,no Acc. Muscle Use GI: BS + ve, NO Bruit, Non Tender, Non Distended : no CVA tenderness, no Suprapubic Tenderness DIAGNOSIS/ASSESSMENT Assessment & Plan EMILY -appears to be improving with IV fluids. We will proceed with renal sonogram. UA does look possibly infected versus chronically colonized. No symptoms per se from the patient standpoint. 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 prostate cancer . Catheter changed on 04/12 HTN- on HCTZ per home med list . Holding HCTZ until volume depletion accomplished DM - On metformin at home. Given current GFR may need to discontinue the same Anemia-/ Chronic- ferrous sulfate listed in home med list. Marginal B12 noted start Nephro-Miles COMMENT/RELEVANT DATA Meds Current Medications Medications (Trade) Dose Ordered Sig/Gail Start Time Stop Time Status Last Admin Dose Admin Famotidine (Pepcid) 20 mg DAILY 04/30/21 09:00 04/30/21 09:28 DC 04/30/21 08:51 20 MG Nystatin (Nystop) 1 john BID 04/30/21 14:15 05/01/21 09:32 1 JOHN Ondansetron HCl (Zofran) 4 mg PRN Q8HRS PRN 04/29/21 21:45 04/30/21 21:44 DC Pantoprazole Sodium (PROTONIX VIAL for IV PUSH) 80 mg 1X ONCE 04/29/21 20:45 04/29/21 20:46 DC 04/29/21 21:27 80 MG Pantoprazole Sodium (Protonix) 40 mg DAILYAC 05/01/21 07:30 05/01/21 09:31 40 MG Pantoprazole Sodium 80 mg/ Sodium Chloride 100 ml @ 10 mls/hr Q10H 04/29/21 20:45 04/30/21 09:28 DC 04/30/21 06:54 10 MLS/HR Sodium Chloride 1,000 ml @ 75 mls/hr [id number] 04/29/21 22:00 04/30/21 21:59 DC 04/30/21 13:48 75 MLS/HR Zolpidem Tartrate (Ambien) 5 mg PRN QHS PRN 04/30/21 08:00 Lab Laboratory Tests Test 04/30/21 22:25 Urine Collection Type Unknown Urine Color Yellow Urine Clarity Cloudy Urine pH 6.5 (<5.0-8.0) Urine Specific [place] 1.010 (1.000-1.030) Urine Protein Negative mg/dL (NEG-TRACE) Urine Glucose (UA) Negative mg/dL (NEG) Urine Ketones (Stick) Negative mg/dL (NEG) Urine Blood Trace (NEG) Urine Nitrite Positive (NEG) Urine Bilirubin Negative (NEG) Urine Urobilinogen Dipstick 1.0 mg/dL (0.2 mg/dL) Urine Leukocyte Esterase Large (NEG) Urine RBC 3-5 /HPF (0-2) Urine WBC Tntc /HPF (0-4) Urine Squamous Epithelial Cells Few /LPF Urine Amorphous Sediment Present /HPF Urine Bacteria Many /HPF (0-FEW) Urine Mucus Slight /LPF Results All relevant outside records, renal labs, imaging studies, telemetry/EKG's were reviewed. Justicifation of Admission Dx: Justifications for Admission: Justification of Admission Dx: N/A KATHERINE WHITE MD May 01, 2021 14:02
[2021-05-01 15:00] VITALS: BP 95/86
[2021-05-01 19:15] VITALS: BP 155/58
[2021-05-01 23:17] VITALS: BP 152/63
[2021-05-02 03:19] VITALS: BP 152/66
[2021-05-02 05:12] LABS: CALCIUM 8.6 mg/dL (8.5-10.1); CREATININE 2.5 mg/dL (0.7-1.3); POTASSIUM 4.2 mmol/L (3.5-5.1)
[2021-05-02 07:15] VITALS: BP 162/74
[2021-05-02] MEDS: FOLIC/VIT B COMP W-C (RENAL) TABLET. PO SCH (08:09)
[2021-05-02] MEDS: PANTOPRAZOLE 40 MG TABLET.DR. PO SCH (08:09)
[2021-05-02] MEDS: NYSTATIN TOPICAL POWDER 15GM BOTTLE. TP SCH ×2 (08:10→21:00)
--- NOTE | 2021-05-02 10:41 | PDOC ---
[employer] PROGRESS NOTE Date of Service DOS: DATE: 05/02/21 TIME: 10:39 Chief Complaint Chief Complaint Nausea vomiting History of Present Illness History of Present Illness Patient is an 85-year-old [facility]. Patient reports that over the past week or so he has been having multiple episodes of nausea and vomiting. Unable to tolerate a notable amount of p.o. intake. Was also having diarrhea with stools darker than usual. Denying any sort of abdominal discomfort. Unknown if labs performed at his [facility] however was transferred here due to concern for GI bleed. In emergency room hemoglobin was normal. He was provided Protonix and IV fluids. When evaluated at bedside this morning patient was in bed eating breakfast. Hemoglobin been stable since presentation. Found to have elevated creatinine baseline unknown to me. Consulting to GI and nephrology. He is denying any headache, vision changes, dizziness, chest pain, shortness of breath, abdominal pain, dysuria. 05/01 Evaluated at bedside, doing well this morning. Creatinine does remain elevated still. Nephrology following. 05/02 Patient seen at bedside no complaints morning. Creatinine does still remain elevated, wondering if this may be his baseline we will continue to monitor closely. Nephrology following. Plan of care discussed with bedside RN. Vitals/I&O Vitals/I&O: Vital Signs Date Time Temp Pulse Resp B/P (MAP) Pulse Ox O2 Delivery O2 Flow Rate FiO2 05/02/21 08:00 Room Air 05/02/21 07:15 98.5 89 22 162/74 (103) 97 98.5 I & O 05/01/21 05/01/21 05/02/21 15:00 23:00 07:00 Intake Total 600 ml 540 ml 1005 ml Output Total 1300 ml 500 ml Balance 600 ml -760 ml 505 ml Physical Exam General: Alert, Oriented X3, Cooperative Heart: Regular rate, Normal S1, Normal S2 Lungs: Clear, Other Abdomen: Normal bowel sounds, Soft, No tenderness Extremities: No edema, Normal pulses Skin: No significant lesion Labs Labs: Laboratory Tests Test 05/02/21 03:25 Sodium Level 142 mmol/L (136-145) Potassium Level 4.2 mmol/L (3.5-5.1) Chloride Level 108 mmol/L (98-107) Carbon Dioxide Level 23 mmol/L (21-32) Anion Gap 11 (6-14) Blood Urea Nitrogen 31 mg/dL (8-26) Creatinine 2.5 mg/dL (0.7-1.3) Estimated GFR (Cockcroft-Gault) 30.0 Glucose Level 105 mg/dL (70-99) Calcium Level 8.6 mg/dL (8.5-10.1) Assessment and Plan Assessmemt and Plan Problems Medical Problems: (1) Nausea and vomiting Status: Acute EMILY likely vasomotor nephropathy, dehydration, nausea vomiting, history of CVA, type 2 diabetes, hypertension -Patient's hemoglobin stable since presentation no sign of GI bleed -Evaluated by GI recommended oral PPI and resuming home iron -Patient with elevated creatinine on presentation and. Unknown baseline. Nephrology consulted -Home meds resumed as indicated -Will go back to facility after discharge -DVT prophylaxis -Diet as tolerated Comment Review of Relevant I have reviewed the following items mag (where applicable) has been applied. Medications: Current Medications Medications (Trade) Dose Ordered Sig/Gail Route PRN Reason Start Time Stop Time Status Last Admin Dose Admin Vitamin B Complex/ Vitamin C (Amber-Miles) 1 tab DAILY PO 05/02/21 09:00 05/02/21 08:09 Justifications for Admission Other Justification CHARLEY HAN MD May 02, 2021 10:41
[2021-05-02] MEDS ORDERED: hydrALAZINE 20 MG/ML VIAL. IVP PRN (11:00)
[2021-05-02 11:05] VITALS: BP 153/75
[2021-05-02 15:36] VITALS: BP 177/78
[2021-05-02 19:15] VITALS: BP 152/74
[2021-05-02 23:14] VITALS: BP 162/77
[2021-05-03 03:12] VITALS: BP 152/61
[2021-05-03 05:43] LABS: CALCIUM 8.9 mg/dL (8.5-10.1); CREATININE 2.3 mg/dL (0.7-1.3); POTASSIUM 3.9 mmol/L (3.5-5.1)
[2021-05-03 07:00] VITALS: BP 157/81
--- NOTE | 2021-05-03 08:22 | RAD ---
EXAM: US RENAL BILAT 05/01/2021 11:19 AM INDICATION: Acute kidney injury. COMPARISON: Renal ultrasound 07/05/2016 Technique grayscale and color Doppler ultrasound images of the kidneys and bladder FINDINGS: The right kidney measures 10.7 x 5.1 x 4.2 cm. The left kidney measures 10.4 x 5.0 x 5.5 cm. There i s increased renal echogenicity bilaterally. No cortical thinning. There are 2 immediately adjacent an echoic right renal cysts measuring up to 4 cm. No hydronephrosis. The bladder is obscured. There is hepatic steatosis. Inferior vena cava is patent at the level of the liver. IMPRESSION: 1. No hydronephrosis. 2. Echogenic appearance the kidneys could reflect medical renal disease. 3. Two simple or minimally complicated right renal cysts. Electronically signed by: Renée Gonzalez MD (05/03/2021 8:20 AM) [id number]
--- NOTE | 2021-05-03 08:51 | PDOC ---
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 Patient reports that over the past week or so he has been having multiple episodes of nausea and vomiting. Unable to tolerate a notable amount of p.o. intake. Was also having diarrhea with stools darker than usual. Denying any sort of abdominal discomfort. Unknown if labs performed at his [facility] however was transferred here due to concern for GI bleed. In emergency room hemoglobin was normal. He was provided Protonix and IV fluids. When evaluated at bedside this morning patient was in bed eating breakfast. Hemoglobin been stable since presentation. Found to have elevated creatinine baseline unknown to me. Consulting to GI and nephrology. He is denying any headache, vision changes, dizziness, chest pain, shortness of breath, abdominal pain, dysuria. 05/01 Evaluated at bedside, doing well this morning. Creatinine does remain elevated still. Nephrology following. 05/02 Patient seen at bedside no complaints morning. Creatinine does still remain elevated, wondering if this may be his baseline we will continue to monitor closely. Nephrology following. Plan of care discussed with bedside RN. 05/03 Patient seen at bedside no complaints morning. Creatinine does still remain elevated, Nephrology following. cr 2.3 Plan of care discussed with RN Echogenic appearance the kidneys could reflect medical renal disease. STOOL guiac neg last hgb 10.1 cr 12-13 1.6 Hx neurogenic bladder- Suprapubic catheter present for 6 years; self reports Dx of Cancer of Pelvis ? 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 In the liver a vague 1 cm hypodensity in the right liver is obscured by streak artifact likely not clinically significant this time. Long-term followup could be considered perhaps in 6 months for ultrasonogram sonogram to look for liver cyst. Otherwise the liver pancreas spleen adrenals and kidneys are not acute with a 2 cm cyst in the right kidney CT pelvis the mid and proximal small bowel loops are less distended than 4 days ago, but still are larger than more distal loops with change in caliber of mid ileum somewhat above the loops of bowel into the large right inguinal hernia NG tube in place Normal appendix is seen. There is contrast in the colon from a CT scan 4 days ago consistent with partial obstruction noted at that time. A suprapubic catheter is present There is large right inguinal hernia containing small bowel loops which are not distended Bone windows are not acute There is no ascites or free air Conclusion Increasing patchy moderate lateral infiltrates since 4 days ago with small pleural effusions Some improvement in moderate partial small bowel obstruction though there is still moderate proximal small bowel distention improved with NG tube in place Oral contrast does go around the colon from CT scan 4 days ago Large right scrotal sac herniae containing nondistended small bowel unchanged DICTATED and SIGNED BY: ALAINA BENSON MD DATE: 07/27/13 1349 Procedure Result URINE CULTURE Final Final Three or more organisms isolated. Results consistent with colonization or contamination during the collection process. Recollection recommended using a method to minimize contamination on 05/03/21 at 0736 Testing Performed by: [address] [address] For Inquires, the Physician may contact the Microbiology department at [phone] Unless otherwise specified, Testing Performed by: [address] [address] For Inquires, the Physician may contact the Microbiology department at [phone] PATIENT: TAWANA NETTLES EACCOUNT: [id number] : 1935 LOCATION: [address] [place] [address] AGE: 85 SEX: M EXAM STATUS: ADM IN ORD. PHYSICIAN: KATHERINE WHITE MD REASON: emily PROCEDURE: RENAL COMPLETE BILATERAL EXAM: US RENAL BILAT 05/01/2021 11:19 AM INDICATION: Acute kidney injury. COMPARISON: Renal ultrasound 07/05/2016 Technique grayscale and color Doppler ultrasound images of the kidneys and bladder FINDINGS: The right kidney measures 10.7 x 5.1 x 4.2 cm. The left kidney measures 10.4 x 5.0 x 5.5 cm. There is increased renal echogenicity bilaterally. No cortical thinning. There are 2 immediately adjacent anechoic right renal cysts measuring up to 4 cm. No hydronephrosis. The bladder is obscured. There is hepatic steatosis. Inferior vena cava is patent at the level of the liver. IMPRESSION: 1. No hydronephrosis. 2. Echogenic appearance the kidneys could reflect medical renal disease. 3. Two simple or minimally complicated right renal cysts. Electronically signed by: Renée Gonzalez MD (05/03/2021 8:20 AM) [id number] DICTATED and SIGNED BY: RENÉE GONZALEZ MD DATE: 05/03/21 [id number] Laboratory Tests Test 05/03/21 04:50 Sodium Level 142 mmol/L (136-145) Potassium Level 3.9 mmol/L (3.5-5.1) Chloride Level 108 mmol/L (98-107) Carbon Dioxide Level 24 mmol/L (21-32) Anion Gap 10 (6-14) Blood Urea Nitrogen 28 mg/dL (8-26) Creatinine 2.3 mg/dL (0.7-1.3) Estimated GFR (Cockcroft-Gault) 33.0 Glucose Level 99 mg/dL (70-99) Calcium Level 8.9 mg/dL (8.5-10.1) Assessment and Plan Assessmemt and Plan Problems Medical Problems: (1) Nausea and vomiting Status: Acute Comment Review of Relevant I have reviewed the following items mag (where applicable) has been applied. Labs Laboratory Tests Test 05/02/21 03:25 05/03/21 04:50 Sodium Level 142 mmol/L (136-145) 142 mmol/L (136-145) Potassium Level 4.2 mmol/L (3.5-5.1) 3.9 mmol/L (3.5-5.1) Chloride Level 108 mmol/L (98-107) 108 mmol/L (98-107) Carbon Dioxide Level 23 mmol/L (21-32) 24 mmol/L (21-32) Anion Gap 11 (6-14) 10 (6-14) Blood Urea Nitrogen 31 mg/dL (8-26) 28 mg/dL (8-26) Creatinine 2.5 mg/dL (0.7-1.3) 2.3 mg/dL (0.7-1.3) Estimated GFR (Cockcroft-Gault) 30.0 33.0 Glucose Level 105 mg/dL (70-99) 99 mg/dL (70-99) Calcium Level 8.6 mg/dL (8.5-10.1) 8.9 mg/dL (8.5-10.1) Laboratory Tests Test 05/03/21 04:50 Sodium Level 142 mmol/L (136-145) Potassium Level 3.9 mmol/L (3.5-5.1) Chloride Level 108 mmol/L (98-107) Carbon Dioxide Level 24 mmol/L (21-32) Anion Gap 10 (6-14) Blood Urea Nitrogen 28 mg/dL (8-26) Creatinine 2.3 mg/dL (0.7-1.3) Estimated GFR (Cockcroft-Gault) 33.0 Glucose Level 99 mg/dL (70-99) Calcium Level 8.9 mg/dL (8.5-10.1) Microbiology 04/30/21 Urine Culture - Final, Complete Medications Current Medications Pantoprazole Sodium (PROTONIX VIAL for IV PUSH) 80 mg 1X ONCE IVP Last administered on 04/29/21at 21:27; Start 04/29/21 at 20:45; Stop 04/29/21 at 20:46; Status DC Pantoprazole Sodium 80 mg/ Sodium Chloride 100 ml @ 10 mls/hr Q10H IV Last administered on 04/30/21at 06:54; Start 04/29/21 at 20:45; Stop 04/30/21 at 09:28; Status DC Sodium Chloride 1,000 ml @ 1,000 mls/hr 1X ONCE IV Last administered on 04/29/21at 21:27; Start 04/29/21 at 22:00; Stop 04/29/21 at 22:59; Status DC Ondansetron HCl (Zofran) 4 mg PRN Q8HRS PRN IVP NAUSEA/VOMITING 1ST CHOICE; Start 04/29/21 at 21:45; Stop 04/30/21 at 21:44; Status DC Sodium Chloride 1,000 ml @ 75 mls/hr [id number] IV Last administered on 04/30/21at 13:48; Start 04/29/21 at 22:00; Stop 04/30/21 at 21:59; Status DC Famotidine (Pepcid) 20 mg DAILY PO Last administered on 04/30/21at 08:51; Start 04/30/21 at 09:00; Stop 04/30/21 at 09:28; Status DC Zolpidem Tartrate (Ambien) 5 mg PRN QHS PRN PO INSOMNIA; Start 04/30/21 at 08:00 Pantoprazole Sodium (Protonix) 40 mg DAILYAC PO Last administered on 05/02/21at 08:09; Start 05/01/21 at 07:30 Nystatin (Nystop) 1 john BID TP Last administered on 05/02/21at 08:10; Start 04/30/21 at 14:15 Vitamin B Complex/ Vitamin C (Amber-Miles) 1 tab DAILY PO Last administered on 05/02/21at 08:09; Start 05/02/21 at 09:00 Hydralazine HCl (Apresoline Inj) 10 mg PRN Q4HRS PRN IVP ELEVATED BP, SEE COMMENTS; Start 05/02/21 at 11:00 Active Scripts Active Reported Zofran (Ondansetron Hcl) 4 Mg Tablet 1 Tab PO PRN Q6-8HRS Senna (Sennosides) 8.8 Mg/5 Ml Syrup 8.8 Mg PO DAILY PRN Multi-Vitamin Daily (Multivitamin) 1 Each Tablet 1 Tab PO DAILY 30 Days Metformin Hcl 500 Mg Tablet 500 Mg PO TIDWMEALS Hydrochlorothiazide Tablet (Hydrochlorothiazide) 25 Mg Tablet 25 Mg PO DAILY Ferrous Sulfate 325 Mg Tablet 1 Tab PO DAILY Famotidine 20 Mg Tablet 20 Mg PO DAILY Cranberry (Cranberry Extract) 425 Mg Capsule 425 Mg PO BID Vitamin C (Ascorbic Acid) 500 Mg Capsule.er 1 Cap PO BID 30 Days Ambien (Zolpidem Tartrate) 10 Mg Tablet 10 Mg PO PRN QHS PRN Vitals/I & O Vital Sign - Last 24 Hours 05/02/21 05/02/21 05/02/21 05/02/21 11:05 15:36 19:15 19:40 Temp 98.6 98.2 99.0 98.6 98.2 99.0 Pulse 90 112 95 Resp 22 22 18 B/P (MAP) 153/75 (101) 177/78 (111) 152/74 (100) Pulse Ox 94 97 97 O2 Delivery Room Air Room Air Room Air Room Air 05/02/21 05/03/21 05/03/21 23:14 03:12 07:00 Temp 97.7 98.0 98.2 97.7 98.0 98.2 Pulse 88 89 92 Resp 18 20 20 B/P (MAP) 162/77 (105) 152/61 (91) 157/81 (106) Pulse Ox 96 98 92 O2 Delivery Room Air Room Air Room Air Intake and Output 05/02/21 05/02/21 05/03/21 15:00 23:00 07:00 Intake Total 550 ml 120 ml 240 ml Output Total 400 ml 300 ml 2200 ml Balance 150 ml -180 ml -1960 ml Justicifation of Admission Dx: Justifications for Admission: Justification of Admission Dx: N/A VALERIE PARDO MD May 03, 2021 08:51
--- NOTE | 2021-05-03 09:21 | PDOC ---
Date of Service: DATE: 05/03/21 TIME: 09:15 Subjective: Subjective: Wants more salt and more sugar. No GI complaints. Objective: Objective: No GI concerns per nurse. Vital Signs: Vital Signs Date Time Temp Pulse Resp B/P (MAP) Pulse Ox O2 Delivery O2 Flow Rate FiO2 05/03/21 07:00 98.2 92 20 157/81 (106) 92 Room Air 98.2 Labs: Laboratory Tests Test 05/03/21 04:50 Sodium Level 142 mmol/L Potassium Level 3.9 mmol/L Chloride Level 108 mmol/L Carbon Dioxide Level 24 mmol/L Anion Gap 10 Blood Urea Nitrogen 28 mg/dL Creatinine 2.3 mg/dL Estimated GFR (Cockcroft-Gault) 33.0 Glucose Level 99 mg/dL Calcium Level 8.9 mg/dL Imaging: Renal US 05/01 IMPRESSION: 1. No hydronephrosis. 2. Echogenic appearance the kidneys could reflect medical renal disease. 3. Two simple or minimally complicated right renal cysts. PE: GEN: NAD - eating breakfast LUNGS: CTAB anteriorly HEART: RRR ABD: S/ND/NT NEURO/PSYCH: A & O 3, probably forgetful A/P: "Dark stool" and vomiting - perhaps prior to admission - none observed here Anemia - iron lowish, TBC and sat WNL, B12 low-normal - Hemoccult negative and apparently on iron EMILY H/o GERD, PUD -- Continue PPI. Resume iron. Outpt scopes. Justicifation of Admission Dx: Justifications for Admission: Justification of Admission Dx: N/A TESSY MOTA May 03, 2021 09:21
[2021-05-03] MEDS ORDERED: POLYETHYLENE GLYCOL 3350 17 GM PACKET. PO PRN (09:30)
--- NOTE | 2021-05-03 09:47 | PDOC ---
DATE OF SERVICE DATE: 05/03/21 TIME: 09:44 SUBJECTIVE ROS Stable, No complaints this morning OBJECTIVE Vital Signs Vital Signs Date Time Temp Pulse Resp B/P (MAP) Pulse Ox O2 Delivery O2 Flow Rate FiO2 05/03/21 07:00 98.2 92 20 157/81 (106) 92 Room Air 98.2 I & 0 Intake and Output 05/03/21 07:00 Intake Total 910 ml Output Total 2900 ml Balance -1990 ml Intake Oral 910 ml Output Urine Total 2900 ml PHYSICAL EXAM Physical Exam General NAD HEEN OM moist, On RA Neck Supple Lungs CTA , non labored CV S1S2, RRR Abd Soft, NT , obese, BS + Neuro Grossly Normal, AXOx3, No focal deficit Derm No rash Ext No LE edema has Suprapubic catheter , No CVA or S tenderness Psych Cooperative , stable DIAGNOSIS/ASSESSMENT Assessment & Plan EMILY - Vasomotor, admitted with N/V . Stable renal function Supportive care, avoid Nephrotoxins, strict I/O . US No hydronephrosis. Echogenic appearance the kidneys could reflect medical renal disease. Renal Cyst - 2 simple or minimally complicated right renal cysts. renal US in 2016 Small Rt renal cyst, ? CKD baseline unknown, baseline Cr in 2013 0.8-0.9, No interval labs. 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 Renal US with Echogenic kidneys Hx of neurogenic bladder- Suprapubic catheter present for 6 + years; reports 2/2 Dx of Cancer of Pelvis ? prostate cancer . Catheter changed on 04/12 HTN- on HCTZ per home med list . Hold HCTZ DM - On metformin at home Anemia-/ Chronic- ferrous sulfate listed in home med list COMMENT/RELEVANT DATA Meds Current Medications Medications (Trade) Dose Ordered Sig/Gail Start Time Stop Time Status Last Admin Dose Admin Famotidine (Pepcid) 20 mg DAILY 04/30/21 09:00 04/30/21 09:28 DC 04/30/21 08:51 20 MG Ferrous Sulfate (Feosol) 325 mg [id number] 05/03/21 10:00 Hydralazine HCl (Apresoline Inj) 10 mg PRN Q4HRS PRN 05/02/21 11:00 Nystatin (Nystop) 1 john BID 04/30/21 14:15 05/02/21 08:10 1 JOHN Ondansetron HCl (Zofran) 4 mg PRN Q8HRS PRN 04/29/21 21:45 04/30/21 21:44 DC Pantoprazole Sodium (PROTONIX VIAL for IV PUSH) 80 mg 1X ONCE 04/29/21 20:45 04/29/21 20:46 DC 04/29/21 21:27 80 MG Pantoprazole Sodium (Protonix) 40 mg DAILYAC 05/01/21 07:30 05/02/21 08:09 40 MG Pantoprazole Sodium 80 mg/ Sodium Chloride 100 ml @ 10 mls/hr Q10H 04/29/21 20:45 04/30/21 09:28 DC 04/30/21 06:54 10 MLS/HR Polyethylene Glycol (miraLAX PACKET) 17 gm PRN DAILY PRN 05/03/21 09:30 Sodium Chloride 1,000 ml @ 75 mls/hr [id number] 04/29/21 22:00 04/30/21 21:59 DC 04/30/21 13:48 75 MLS/HR Vitamin B Complex/ Vitamin C (Amber-Miles) 1 tab DAILY 05/02/21 09:00 05/02/21 08:09 1 TAB Zolpidem Tartrate (Ambien) 5 mg PRN QHS PRN 04/30/21 08:00 Lab Laboratory Tests Test 05/03/21 04:50 Sodium Level 142 mmol/L (136-145) Potassium Level 3.9 mmol/L (3.5-5.1) Chloride Level 108 mmol/L (98-107) Carbon Dioxide Level 24 mmol/L (21-32) Anion Gap 10 (6-14) Blood Urea Nitrogen 28 mg/dL (8-26) Creatinine 2.3 mg/dL (0.7-1.3) Estimated GFR (Cockcroft-Gault) 33.0 Glucose Level 99 mg/dL (70-99) Calcium Level 8.9 mg/dL (8.5-10.1) Results All relevant outside records, renal labs, imaging studies, telemetry/EKG's were reviewed. Justicifation of Admission Dx: Justifications for Admission: Justification of Admission Dx: N/A ARDEN MARIE MD May 03, 2021 09:46
[2021-05-03] MEDS: FERROUS SULFATE 325 MG TABLET. PO SCH (10:00)
[2021-05-03] MEDS: NYSTATIN TOPICAL POWDER 15GM BOTTLE. TP SCH ×2 (10:49→21:00)
[2021-05-03] MEDS: PANTOPRAZOLE 40 MG TABLET.DR. PO SCH (10:49)
[2021-05-03] MEDS: FOLIC/VIT B COMP W-C (RENAL) TABLET. PO SCH (10:50)
[2021-05-03 10:52] VITALS: BP 164/69
[2021-05-03 14:47] VITALS: BP 140/53
[2021-05-03] MEDS: ASCORBIC ACID 500 MG TABLET PO SCH (18:03)
[2021-05-03 19:00] VITALS: BP 166/82
[2021-05-03 23:00] VITALS: BP 153/78
[2021-05-04 03:00] VITALS: BP 134/64
[2021-05-04 07:00] VITALS: BP 135/58
[2021-05-04 07:34] LABS: BASO % 0 % (0-3); EOS # 0.4 x10^3/uL (0.0-0.7); EOS % 4 % (0-3); HEMATOCRIT 27.8 % (39.0-53.0); HEMOGLOBIN 9.5 g/dL (13.0-17.5); LYMPH % 36 % (24-48); MEAN CORPUSCULAR HEMOGLOBIN 31 pg (25-35); MEAN CORPUSCULAR HGB CONC 34 g/dL (31-37); MEAN CORPUSCULAR VOLUME 91 fL (79-100); MONO % 12 % (0-9); NEUT # 4.1 x10^3/uL (1.8-7.7); NEUT % 48 % (31-73); PLATELET COUNT 196 x10^3/uL (140-400); RED BLOOD COUNT 3.04 x10^6/uL (4.30-5.70); RED CELL DISTRIBUTION WIDTH 14.8 % (11.5-14.5); WHITE BLOOD COUNT 8.5 x10^3/uL (4.0-11.0)
[2021-05-04 07:38] LABS: ALBUMIN 2.7 g/dL (3.4-5.0); ALBUMIN/GLOBULIN RATIO 0.7 (1.0-1.7); CALCIUM 8.5 mg/dL (8.5-10.1); CREATININE 2.6 mg/dL (0.7-1.3); GFR 28.7; POTASSIUM 4.1 mmol/L (3.5-5.1); TOTAL BILIRUBIN 0.3 mg/dL (0.2-1.0); TOTAL PROTEIN 6.4 g/dL (6.4-8.2)
[2021-05-04] MEDS: ASCORBIC ACID 500 MG TABLET PO SCH (08:55)
[2021-05-04] MEDS: PANTOPRAZOLE 40 MG TABLET.DR. PO SCH (08:55)
[2021-05-04] MEDS: FOLIC/VIT B COMP W-C (RENAL) TABLET. PO SCH (08:55)
[2021-05-04] MEDS: FERROUS SULFATE 325 MG TABLET. PO SCH (08:55)
[2021-05-04] MEDS: NYSTATIN TOPICAL POWDER 15GM BOTTLE. TP SCH ×2 (09:00→20:51)
--- NOTE | 2021-05-04 09:10 | PDOC ---
Date of Service: DATE: 05/04/21 TIME: 08:57 Subjective: Subjective: Said he was about to call for a CHEMIST PHYSICAL - he needs to sit up in bed, would like his breakfast tray moved closed and the lid removed from his plate, and also would like to know where the remote is. Objective: Objective: D/w nurse - no GI concerns, has been a bit grumpy when staff attempts to help turn, etc. Stool charted 05/02. Vital Signs: Vital Signs Date Time Temp Pulse Resp B/P (MAP) Pulse Ox O2 Delivery O2 Flow Rate FiO2 05/04/21 07:00 98.1 96 18 135/58 (83) 97 Room Air 98.1 Labs: Laboratory Tests Test 05/03/21 17:39 05/04/21 06:45 05/04/21 07:29 Glucose (Fingerstick) 133 mg/dL 134 mg/dL White Blood Count 8.5 x10^3/uL Red Blood Count 3.04 x10^6/uL Hemoglobin 9.5 g/dL Hematocrit 27.8 % Mean Corpuscular Volume 91 fL Mean Corpuscular Hemoglobin 31 pg Mean Corpuscular Hemoglobin Concent 34 g/dL Red Cell Distribution Width 14.8 % Platelet Count 196 x10^3/uL Neutrophils (%) (Auto) 48 % Lymphocytes (%) (Auto) 36 % Monocytes (%) (Auto) 12 % Eosinophils (%) (Auto) 4 % Basophils (%) (Auto) 0 % Neutrophils # (Auto) 4.1 x10^3/uL Lymphocytes # (Auto) 3.0 x10^3/uL Monocytes # (Auto) 1.0 x10^3/uL Eosinophils # (Auto) 0.4 x10^3/uL Basophils # (Auto) 0.0 x10^3/uL Sodium Level 143 mmol/L Potassium Level 4.1 mmol/L Chloride Level 109 mmol/L Carbon Dioxide Level 23 mmol/L Anion Gap 11 Blood Urea Nitrogen 35 mg/dL Creatinine 2.6 mg/dL Estimated GFR (Cockcroft-Gault) 28.7 BUN/Creatinine Ratio 13 Glucose Level 91 mg/dL Calcium Level 8.5 mg/dL Total Bilirubin 0.3 mg/dL Aspartate Amino Transf (AST/SGOT) 5 U/L Alanine Aminotransferase (ALT/SGPT) 18 U/L Alkaline Phosphatase 64 U/L Total Protein 6.4 g/dL Albumin 2.7 g/dL Albumin/Globulin Ratio 0.7 PE: GEN: NAD LUNGS: CTAB HEART: RRR ABD: S/ND/NT NEURO/PSYCH: A & O 3 A/P: "Dark stool" and vomiting - none observed as inpatient Anemia - iron lowish, TBC and sat WNL, B12 low-normal - Hemoccult negative, on iron prior to admission and restarted here EMILY H/o GERD, PUD - on PPI here -- Continue PPI if okay with nephrology and iron. Outpt scopes. Justicifation of Admission Dx: Justifications for Admission: Justification of Admission Dx: N/A TESSY MOTA May 04, 2021 09:10
--- NOTE | 2021-05-04 09:59 | PDOC ---
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 History of Present Illness History of Present Illness Patient is an 85-year-old male transferred [facility] due to concern for GI bleed. Patient reports that over the past week or so he has been having multiple episodes of nausea and vomiting. Unable to tolerate a notable amount of p.o. intake. Was also having diarrhea with stools darker than usual. Denying any sort of abdominal discomfort. Unknown if labs performed at his long term however was transferred here due to concern for GI bleed. In emergency room hemoglobin was normal. He was provided Protonix and IV fluids. When evaluated at bedside this morning patient was in bed eating breakfast. Hemoglobin been stable since presentation. Found to have elevated creatinine baseline unknown to me. Consulting to GI and nephrology. He is denying any headache, vision changes, dizziness, chest pain, shortness of breath, abdominal pain, dysuria. 05/01 Evaluated at bedside, doing well this morning. Creatinine does remain elevated still. Nephrology following. 05/02 Patient seen at bedside no complaints morning. Creatinine does still remain elevated, wondering if this may be his baseline we will continue to monitor closely. Nephrology following. Plan of care discussed with bedside RN. 05/03 Patient seen at bedside no complaints morning. Creatinine does still remain elevated, Nephrology following. cr 2.6 Plan of care discussed with RN Echogenic appearance the kidneys could reflect medical renal disease. STOOL guiac neg last hgb 10.1 cr 12-13 1.6 Hx neurogenic bladder- Suprapubic catheter present for 6 years; self reports Dx of Cancer of Pelvis ? 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 Creatinine does still remain elevated, Nephrology following. cr 2.6 Plan of care discussed with RN Echogenic appearance the kidneys could reflect medical renal disease. STOOL guiac neg last hgb 10.1 cr 12-13 1.6 Hx neurogenic bladder- Suprapubic catheter present for 6 years; self reports Dx of Cancer of Pelvis ? 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 Creatinine does still remain elevated, Nephrology following. cr 2.3 Plan of care discussed with RN Echogenic appearance the kidneys could reflect medical renal disease. STOOL guiac neg last hgb 10.1 cr 12-13 1.6 Hx neurogenic bladder- Suprapubic catheter present for 6 years; self reports Dx of Cancer of Pelvis ? 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 follows at [facility], no knowledge of Dx of CKD, NO pile header d/w RN Vitals Vitals Vital Signs Date Time Temp Pulse Resp B/P (MAP) Pulse Ox O2 Delivery O2 Flow Rate FiO2 05/04/21 07:00 98.1 96 18 135/58 (83) 97 Room Air 98.1 Physical Exam General: Alert, Oriented X3, Cooperative, No acute distress Heart: Regular rate, Normal S1, Normal S2 Lungs: Clear, Other Abdomen: Normal bowel sounds, Soft, No tenderness, No masses Extremities: No clubbing, No cyanosis, No edema, Normal pulses Skin: No significant lesion Labs LABS Laboratory Tests Test 05/03/21 17:39 05/04/21 06:45 05/04/21 07:29 Glucose (Fingerstick) 133 mg/dL (70-99) 134 mg/dL (70-99) White Blood Count 8.5 x10^3/uL (4.0-11.0) Red Blood Count 3.04 x10^6/uL (4.30-5.70) Hemoglobin 9.5 g/dL (13.0-17.5) Hematocrit 27.8 % (39.0-53.0) Mean Corpuscular Volume 91 fL (79-100) Mean Corpuscular Hemoglobin 31 pg (25-35) Mean Corpuscular Hemoglobin Concent 34 g/dL (31-37) Red Cell Distribution Width 14.8 % (11.5-14.5) Platelet Count 196 x10^3/uL (140-400) Neutrophils (%) (Auto) 48 % (31-73) Lymphocytes (%) (Auto) 36 % (24-48) Monocytes (%) (Auto) 12 % (0-9) Eosinophils (%) (Auto) 4 % (0-3) Basophils (%) (Auto) 0 % (0-3) Neutrophils # (Auto) 4.1 x10^3/uL (1.8-7.7) Lymphocytes # (Auto) 3.0 x10^3/uL (1.0-4.8) Monocytes # (Auto) 1.0 x10^3/uL (0.0-1.1) Eosinophils # (Auto) 0.4 x10^3/uL (0.0-0.7) Basophils # (Auto) 0.0 x10^3/uL (0.0-0.2) Sodium Level 143 mmol/L (136-145) Potassium Level 4.1 mmol/L (3.5-5.1) Chloride Level 109 mmol/L (98-107) Carbon Dioxide Level 23 mmol/L (21-32) Anion Gap 11 (6-14) Blood Urea Nitrogen 35 mg/dL (8-26) Creatinine 2.6 mg/dL (0.7-1.3) Estimated GFR (Cockcroft-Gault) 28.7 BUN/Creatinine Ratio 13 (6-20) Glucose Level 91 mg/dL (70-99) Calcium Level 8.5 mg/dL (8.5-10.1) Total Bilirubin 0.3 mg/dL (0.2-1.0) Aspartate Amino Transf (AST/SGOT) 5 U/L (15-37) Alanine Aminotransferase (ALT/SGPT) 18 U/L (16-63) Alkaline Phosphatase 64 U/L (46-116) Total Protein 6.4 g/dL (6.4-8.2) Albumin 2.7 g/dL (3.4-5.0) Albumin/Globulin Ratio 0.7 (1.0-1.7) Assessment and Plan Assessmemt and Plan Problems Medical Problems: (1) Nausea and vomiting Status: Acute Comment Review of Relevant I have reviewed the following items mag (where applicable) has been applied. Labs Laboratory Tests Test 05/03/21 04:50 05/03/21 17:39 05/04/21 06:45 05/04/21 07:29 Sodium Level 142 mmol/L (136-145) 143 mmol/L (136-145) Potassium Level 3.9 mmol/L (3.5-5.1) 4.1 mmol/L (3.5-5.1) Chloride Level 108 mmol/L (98-107) 109 mmol/L (98-107) Carbon Dioxide Level 24 mmol/L (21-32) 23 mmol/L (21-32) Anion Gap 10 (6-14) 11 (6-14) Blood Urea Nitrogen 28 mg/dL (8-26) 35 mg/dL (8-26) Creatinine 2.3 mg/dL (0.7-1.3) 2.6 mg/dL (0.7-1.3) Estimated GFR (Cockcroft-Gault) 33.0 28.7 Glucose Level 99 mg/dL (70-99) 91 mg/dL (70-99) Calcium Level 8.9 mg/dL (8.5-10.1) 8.5 mg/dL (8.5-10.1) Glucose (Fingerstick) 133 mg/dL (70-99) 134 mg/dL (70-99) White Blood Count 8.5 x10^3/uL (4.0-11.0) Red Blood Count 3.04 x10^6/uL (4.30-5.70) Hemoglobin 9.5 g/dL (13.0-17.5) Hematocrit 27.8 % (39.0-53.0) Mean Corpuscular Volume 91 fL (79-100) Mean Corpuscular Hemoglobin 31 pg (25-35) Mean Corpuscular Hemoglobin Concent 34 g/dL (31-37) Red Cell Distribution Width 14.8 % (11.5-14.5) Platelet Count 196 x10^3/uL (140-400) Neutrophils (%) (Auto) 48 % (31-73) Lymphocytes (%) (Auto) 36 % (24-48) Monocytes (%) (Auto) 12 % (0-9) Eosinophils (%) (Auto) 4 % (0-3) Basophils (%) (Auto) 0 % (0-3) Neutrophils # (Auto) 4.1 x10^3/uL (1.8-7.7) Lymphocytes # (Auto) 3.0 x10^3/uL (1.0-4.8) Monocytes # (Auto) 1.0 x10^3/uL (0.0-1.1) Eosinophils # (Auto) 0.4 x10^3/uL (0.0-0.7) Basophils # (Auto) 0.0 x10^3/uL (0.0-0.2) BUN/Creatinine Ratio 13 (6-20) Total Bilirubin 0.3 mg/dL (0.2-1.0) Aspartate Amino Transf (AST/SGOT) 5 U/L (15-37) Alanine Aminotransferase (ALT/SGPT) 18 U/L (16-63) Alkaline Phosphatase 64 U/L (46-116) Total Protein 6.4 g/dL (6.4-8.2) Albumin 2.7 g/dL (3.4-5.0) Albumin/Globulin Ratio 0.7 (1.0-1.7) Laboratory Tests Test 05/03/21 17:39 05/04/21 06:45 05/04/21 07:29 Glucose (Fingerstick) 133 mg/dL (70-99) 134 mg/dL (70-99) White Blood Count 8.5 x10^3/uL (4.0-11.0) Red Blood Count 3.04 x10^6/uL (4.30-5.70) Hemoglobin 9.5 g/dL (13.0-17.5) Hematocrit 27.8 % (39.0-53.0) Mean Corpuscular Volume 91 fL (79-100) Mean Corpuscular Hemoglobin 31 pg (25-35) Mean Corpuscular Hemoglobin Concent 34 g/dL (31-37) Red Cell Distribution Width 14.8 % (11.5-14.5) Platelet Count 196 x10^3/uL (140-400) Neutrophils (%) (Auto) 48 % (31-73) Lymphocytes (%) (Auto) 36 % (24-48) Monocytes (%) (Auto) 12 % (0-9) Eosinophils (%) (Auto) 4 % (0-3) Basophils (%) (Auto) 0 % (0-3) Neutrophils # (Auto) 4.1 x10^3/uL (1.8-7.7) Lymphocytes # (Auto) 3.0 x10^3/uL (1.0-4.8) Monocytes # (Auto) 1.0 x10^3/uL (0.0-1.1) Eosinophils # (Auto) 0.4 x10^3/uL (0.0-0.7) Basophils # (Auto) 0.0 x10^3/uL (0.0-0.2) Sodium Level 143 mmol/L (136-145) Potassium Level 4.1 mmol/L (3.5-5.1) Chloride Level 109 mmol/L (98-107) Carbon Dioxide Level 23 mmol/L (21-32) Anion Gap 11 (6-14) Blood Urea Nitrogen 35 mg/dL (8-26) Creatinine 2.6 mg/dL (0.7-1.3) Estimated GFR (Cockcroft-Gault) 28.7 BUN/Creatinine Ratio 13 (6-20) Glucose Level 91 mg/dL (70-99) Calcium Level 8.5 mg/dL (8.5-10.1) Total Bilirubin 0.3 mg/dL (0.2-1.0) Aspartate Amino Transf (AST/SGOT) 5 U/L (15-37) Alanine Aminotransferase (ALT/SGPT) 18 U/L (16-63) Alkaline Phosphatase 64 U/L (46-116) Total Protein 6.4 g/dL (6.4-8.2) Albumin 2.7 g/dL (3.4-5.0) Albumin/Globulin Ratio 0.7 (1.0-1.7) Microbiology 04/30/21 Urine Culture - Final, Complete Medications Current Medications Pantoprazole Sodium (PROTONIX VIAL for IV PUSH) 80 mg 1X ONCE IVP Last adminis tered on 04/29/21at 21:27; Start 04/29/21 at 20:45; Stop 04/29/21 at 20:46; Status DC Pantoprazole Sodium 80 mg/ Sodium Chloride 100 ml @ 10 mls/hr Q10H IV Last administered on 04/30/21at 06:54; Start 04/29/21 at 20:45; Stop 04/30/21 at 09:28; Status DC Sodium Chloride 1,000 ml @ 1,000 mls/hr 1X ONCE IV Last administered on 04/29/21at 21:27; Start 04/29/21 at 22:00; Stop 04/29/21 at 22:59; Status DC Ondansetron HCl (Zofran) 4 mg PRN Q8HRS PRN IVP NAUSEA/VOMITING 1ST CHOICE; Start 04/29/21 at 21:45; Stop 04/30/21 at 21:44; Status DC Sodium Chloride 1,000 ml @ 75 mls/hr [id number] IV Last administered on 04/30/21at 13:48; Start 04/29/21 at 22:00; Stop 04/30/21 at 21:59; Status DC Famotidine (Pepcid) 20 mg DAILY PO Last administered on 04/30/21at 08:51; Start 04/30/21 at 09:00; Stop 04/30/21 at 09:28; Status DC Zolpidem Tartrate (Ambien) 5 mg PRN QHS PRN PO INSOMNIA; Start 04/30/21 at 08:00 Pantoprazole Sodium (Protonix) 40 mg DAILYAC PO Last administered on 05/04/21at 08:55; Start 05/01/21 at 07:30 Nystatin (Nystop) 1 john BID TP Last administered on 05/03/21at 10:49; Start 04/30/21 at 14:15 Vitamin B Complex/ Vitamin C (Fidel-Rivka) 1 tab DAILY PO Last administered on 05/04/21at 08:55; Start 05/02/21 at 09:00 Hydralazine HCl (Apresoline Inj) 10 mg PRN Q4HRS PRN IVP ELEVATED BP, SEE COMMENTS; Start 05/02/21 at 11:00 Ferrous Sulfate (Feosol) 325 mg DAILYWBKFT PO Last administered on 05/04/21at 08:55; Start 05/03/21 at 10:00 Polyethylene Glycol (miraLAX PACKET) 17 gm PRN DAILY PRN PO CONSTIPATION; Start 05/03/21 at 09:30 Ascorbic Acid (Vitamin C) 500 mg DAILY PO Last administered on 05/04/21at 08:55; Start 05/03/21 at 16:00 Active Scripts Active Reported Zofran (Ondansetron Hcl) 4 Mg Tablet 1 Tab PO PRN Q6-8HRS Senna (Sennosides) 8.8 Mg/5 Ml Syrup 8.8 Mg PO DAILY PRN Multi-Vitamin Daily (Multivitamin) 1 Each Tablet 1 Tab PO DAILY 30 Days Metformin Hcl 500 Mg Tablet 500 Mg PO TIDWMEALS Hydrochlorothiazide Tablet (Hydrochlorothiazide) 25 Mg Tablet 25 Mg PO DAILY Ferrous Sulfate 325 Mg Tablet 1 Tab PO DAILY Famotidine 20 Mg Tablet 20 Mg PO DAILY Cranberry (Cranberry Extract) 425 Mg Capsule 425 Mg PO BID Vitamin C (Ascorbic Acid) 500 Mg Capsule.er 1 Cap PO BID 30 Days Ambien (Zolpidem Tartrate) 10 Mg Tablet 10 Mg PO PRN QHS PRN Vitals/I & O Vital Sign - Last 24 Hours 05/03/21 05/03/21 05/03/21 05/03/21 10:52 14:47 19:00 20:00 Temp 98.3 98.6 99.2 98.3 98.6 99.2 Pulse 97 97 86 Resp 18 18 18 B/P (MAP) 164/69 (100) 140/53 (82) 166/82 (110) Pulse Ox 98 97 97 O2 Delivery Room Air Room Air Room Air Room Air 05/03/21 05/04/21 05/04/21 23:00 03:00 07:00 Temp 98.6 98.7 98.1 98.6 98.7 98.1 Pulse 105 93 96 Resp 18 18 18 B/P (MAP) 153/78 (103) 134/64 (87) 135/58 (83) Pulse Ox 96 95 97 O2 Delivery Room Air Room Air Room Air Intake and Output 05/03/21 05/03/21 05/04/21 15:00 23:00 07:00 Intake Total 500 ml Output Total 850 ml 400 ml Balance -350 ml -400 ml Nutrition Consultation Dietary Evaluation: Recommendations by RD: Dietary education by RD, Increase Calorie Intake, Protein supplementation Comments: Renal/ ADA diet Glucerna tid fidel-rivka Expected Outcomes/Goals: to meet >75% est nutrition needs Malnutrition Findings: Food and Nutrition Intake (Mod: <75% est energy req 7days Weight Status: Overweight Justicifation of Admission Dx: Justifications for Admission: Justification of Admission Dx: N/A VALERIE PARDO MD May 04, 2021 09:59
[2021-05-04] MEDS ORDERED: NYSTATIN TOPICAL POWDER 15GM BOTTLE. TP SCH (10:00)
--- NOTE | 2021-05-04 10:27 | PDOC ---
DATE OF SERVICE DATE: 05/04/21 TIME: 10:26 SUBJECTIVE ROS Stable, No complaints this morning OBJECTIVE Vital Signs Vital Signs Date Time Temp Pulse Resp B/P (MAP) Pulse Ox O2 Delivery O2 Flow Rate FiO2 05/04/21 07:00 98.1 96 18 135/58 (83) 97 Room Air 98.1 I & 0 Intake and Output 05/04/21 07:00 Intake Total 500 ml Output Total 1250 ml Balance -750 ml Intake Oral 500 ml Output Urine Total 1250 ml PHYSICAL EXAM Physical Exam General NAD HEEN OM moist, On RA Neck Supple Lungs CTA , non labored CV S1S2, RRR Abd Soft, NT , obese, BS + Neuro Grossly Normal, AXOx3, No focal deficit Derm No rash Ext No LE edema has Suprapubic catheter , No CVA or S tenderness Psych Cooperative , stable DIAGNOSIS/ASSESSMENT Assessment & Plan EMILY - Vasomotor, admitted with N/V . Stable renal function ? his baseline . Still [facility] or [facility] Supportive care, avoid Nephrotoxins, strict I/O . US No hydronephrosis. Echogenic appearance the kidneys could reflect medical renal disease. Renal Cyst - 2 simple or minimally complicated right renal cysts. renal US in 2016 Small Rt renal cyst, ? CKD baseline unknown, baseline Cr in 2013 0.8-0.9, No interval labs. 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 Renal US with Echogenic kidneys . Hx of neurogenic bladder- Suprapubic catheter present for 6 + years; reports 2/2 Dx of Cancer of Pelvis ? prostate cancer . Catheter changed on 04/12 HTN- on HCTZ per home med list . Hold HCTZ DM - On metformin at home Anemia-/ Chronic- ferrous sulfate listed in home med list COMMENT/RELEVANT DATA Meds Current Medications Medications (Trade) Dose Ordered Sig/Gail Start Time Stop Time Status Last Admin Dose Admin Ascorbic Acid (Vitamin C) 500 mg DAILY 05/03/21 16:00 05/04/21 08:55 500 MG Famotidine (Pepcid) 20 mg DAILY 04/30/21 09:00 04/30/21 09:28 DC 04/30/21 08:51 20 MG Ferrous Sulfate (Feosol) 325 mg DAILYWBKFT 05/03/21 10:00 05/04/21 08:55 325 MG Hydralazine HCl (Apresoline Inj) 10 mg PRN Q4HRS PRN 05/02/21 11:00 Nystatin (Nystop) 1 john BID 05/04/21 10:00 Ondansetron HCl (Zofran) 4 mg PRN Q8HRS PRN 04/29/21 21:45 04/30/21 21:44 DC Pantoprazole Sodium (PROTONIX VIAL for IV PUSH) 80 mg 1X ONCE 04/29/21 20:45 04/29/21 20:46 DC 04/29/21 21:27 80 MG Pantoprazole Sodium (Protonix) 40 mg DAILYAC 05/01/21 07:30 05/04/21 08:55 40 MG Pantoprazole Sodium 80 mg/ Sodium Chloride 100 ml @ 10 mls/hr Q10H 04/29/21 20:45 04/30/21 09:28 DC 04/30/21 06:54 10 MLS/HR Polyethylene Glycol (miraLAX PACKET) 17 gm PRN DAILY PRN 05/03/21 09:30 Sodium Chloride 1,000 ml @ 75 mls/hr [id number] 04/29/21 22:00 04/30/21 21:59 DC 04/30/21 13:48 75 MLS/HR Vitamin B Complex/ Vitamin C (Amber-Miles) 1 tab DAILY 05/02/21 09:00 05/04/21 08:55 1 TAB Zolpidem Tartrate (Ambien) 5 mg PRN QHS PRN 04/30/21 08:00 Lab Laboratory Tests Test 05/03/21 17:39 05/04/21 06:45 05/04/21 07:29 Glucose (Fingerstick) 133 mg/dL (70-99) 134 mg/dL (70-99) White Blood Count 8.5 x10^3/uL (4.0-11.0) Red Blood Count 3.04 x10^6/uL (4.30-5.70) Hemoglobin 9.5 g/dL (13.0-17.5) Hematocrit 27.8 % (39.0-53.0) Mean Corpuscular Volume 91 fL (79-100) Mean Corpuscular Hemoglobin 31 pg (25-35) Mean Corpuscular Hemoglobin Concent 34 g/dL (31-37) Red Cell Distribution Width 14.8 % (11.5-14.5) Platelet Count 196 x10^3/uL (140-400) Neutrophils (%) (Auto) 48 % (31-73) Lymphocytes (%) (Auto) 36 % (24-48) Monocytes (%) (Auto) 12 % (0-9) Eosinophils (%) (Auto) 4 % (0-3) Basophils (%) (Auto) 0 % (0-3) Neutrophils # (Auto) 4.1 x10^3/uL (1.8-7.7) Lymphocytes # (Auto) 3.0 x10^3/uL (1.0-4.8) Monocytes # (Auto) 1.0 x10^3/uL (0.0-1.1) Eosinophils # (Auto) 0.4 x10^3/uL (0.0-0.7) Basophils # (Auto) 0.0 x10^3/uL (0.0-0.2) Sodium Level 143 mmol/L (136-145) Potassium Level 4.1 mmol/L (3.5-5.1) Chloride Level 109 mmol/L (98-107) Carbon Dioxide Level 23 mmol/L (21-32) Anion Gap 11 (6-14) Blood Urea Nitrogen 35 mg/dL (8-26) Creatinine 2.6 mg/dL (0.7-1.3) Estimated GFR (Cockcroft-Gault) 28.7 BUN/Creatinine Ratio 13 (6-20) Glucose Level 91 mg/dL (70-99) Calcium Level 8.5 mg/dL (8.5-10.1) Total Bilirubin 0.3 mg/dL (0.2-1.0) Aspartate Amino Transf (AST/SGOT) 5 U/L (15-37) Alanine Aminotransferase (ALT/SGPT) 18 U/L (16-63) Alkaline Phosphatase 64 U/L (46-116) Total Protein 6.4 g/dL (6.4-8.2) Albumin 2.7 g/dL (3.4-5.0) Albumin/Globulin Ratio 0.7 (1.0-1.7) Results All relevant outside records, renal labs, imaging studies, telemetry/EKG's were reviewed. Justicifation of Admission Dx: Justifications for Admission: Justification of Admission Dx: N/A ARDEN MARIE MD May 04, 2021 10:27
[2021-05-04 11:00] VITALS: BP 151/63
[2021-05-04 15:00] VITALS: BP 139/58
[2021-05-04 19:00] VITALS: BP 161/69
[2021-05-04 23:00] VITALS: BP 120/88
[2021-05-05 03:00] VITALS: BP 177/54
[2021-05-05 07:00] VITALS: BP 160/63
--- NOTE | 2021-05-05 08:34 | PDOC ---
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 History of Present Illness History of Present Illness Patient is an 85-year-old male [facility] due to concern for GI bleed. Patient reports that over the past week or so he has been having multiple episodes of nausea and vomiting. Unable to tolerate a notable amount of p.o. intake. Was also having diarrhea with stools darker than usual. Denying any sort of abdominal discomfort. Unknown if labs performed at his care home however was transferred here due to concern for GI bleed. In emergency room hemoglobin was normal. He was provided Protonix and IV fluids. When evaluated at bedside this morning patient was in bed eating breakfast. Hemoglobin been stable since presentation. Found to have elevated creatinine baseline unknown to me. Consulting to GI and nephrology. He is denying any headache, vision changes, dizziness, chest pain, shortness of breath, abdominal pain, dysuria. 05/01 Evaluated at bedside, doing well this morning. Creatinine does remain elevated still. Nephrology following. 05/02 Patient seen at bedside no complaints morning. Creatinine does still remain elevated, wondering if this may be his baseline we will continue to monitor closely. Nephrology following. Plan of care discussed with bedside RN. 05/03 Patient seen at bedside no complaints morning. Creatinine does still remain elevated, Nephrology following. cr 2.6 Plan of care discussed with RN Echogenic appearance the kidneys could reflect medical renal disease. STOOL guiac neg last hgb 10.1 cr 12-13 1.6 Hx neurogenic bladder- Suprapubic catheter present for 6 years; self reports Dx of Cancer of Pelvis ? prostate cancer temporary dialysis cath in 2012 when here for sepsis "Dark stool" and vomiting - ADVISOR CONSULTANT follows at [facility], no knowledge of Dx of CKD, NO back closer 05/03 Patient seen at bedside no complaints morning. Creatinine does still remain elevated, Nephrology following. cr 2.6 Plan of care discussed with RN Echogenic appearance the kidneys could reflect medical renal disease. STOOL guiac neg last hgb 10.1 cr 12-13 1.6 Hx neurogenic bladder- Suprapubic catheter present for 6 years; self reports Dx of Cancer of Pelvis ? prostate cancer temporary dialysis cath in 2012 when here for sepsis "Dark stool" and vomiting - ADVISOR CONSULTANT follows at [facility], no knowledge of Dx of CKD, NO back closer 05/04 Patient seen at bedside no complaints morning. Creatinine does still remain elevated, Nephrology following. cr 2.3 Plan of care discussed with RN Echogenic appearance the kidneys could reflect medical renal disease. STOOL guiac neg last hgb 10.1 cr 12-13 1.6 Hx neurogenic bladder- Suprapubic catheter present for 6 years; self reports Dx of Cancer of Pelvis ? prostate cancer temporary dialysis cath in 2012 when here for sepsis "Dark stool" and vomiting - ADVISOR CONSULTANT follows at [facility], no knowledge of Dx of CKD, NO back closer d/w RN 05/05 Patient seen at bedside no complaints morning. Creatinine elevated, Nephrology following. cr 2.5 Plan of care discussed with RN Echogenic appearance the kidneys could reflect medical renal disease. STOOL guiac neg last hgb 10.1 cr 12-13 1.6 Hx neurogenic bladder- Suprapubic catheter present for 6 years; self reports Dx of Cancer of Pelvis ? prostate cancer temporary dialysis cath in 2012 when here for sepsis "Dark stool" and vomiting - ADVISOR CONSULTANT D/W RN follows at [facility], no knowledge of Dx of CKD, NO back closer d/w RN Vitals Vitals Vital Signs Date Time Temp Pulse Resp B/P (MAP) Pulse Ox O2 Delivery O2 Flow Rate FiO2 05/05/21 07:00 98.3 86 18 160/63 (95) 97 Room Air 98.3 Physical Exam General: Alert, Oriented X3, Cooperative, No acute distress Heart: Regular rate, Normal S1, Normal S2 Lungs: Clear, Other Abdomen: Normal bowel sounds, Soft, No tenderness, No masses Extremities: No clubbing, No cyanosis, No edema, Normal pulses Skin: No significant lesion Labs LABS Laboratory Tests Test 05/04/21 20:29 Glucose (Fingerstick) 136 mg/dL (70-99) Assessment and Plan Assessmemt and Plan Problems Medical Problems: (1) Nausea and vomiting Status: Acute Comment Review of Relevant I have reviewed the following items mag (where applicable) has been applied. Labs Laboratory Tests Test 05/03/21 14:40 05/03/21 17:39 05/04/21 06:45 05/04/21 07:29 SARS-CoV-2 RNA (CHRISTELLE) Negative (Negative) Glucose (Fingerstick) 133 mg/dL (70-99) 134 mg/dL (70-99) White Blood Count 8.5 x10^3/uL (4.0-11.0) Red Blood Count 3.04 x10^6/uL (4.30-5.70) Hemoglobin 9.5 g/dL (13.0-17.5) Hematocrit 27.8 % (39.0-53.0) Mean Corpuscular Volume 91 fL (79-100) Mean Corpuscular Hemoglobin 31 pg (25-35) Mean Corpuscular Hemoglobin Concent 34 g/dL (31-37) Red Cell Distribution Width 14.8 % (11.5-14.5) Platelet Count 196 x10^3/uL (140-400) Neutrophils (%) (Auto) 48 % (31-73) Lymphocytes (%) (Auto) 36 % (24-48) Monocytes (%) (Auto) 12 % (0-9) Eosinophils (%) (Auto) 4 % (0-3) Basophils (%) (Auto) 0 % (0-3) Neutrophils # (Auto) 4.1 x10^3/uL (1.8-7.7) Lymphocytes # (Auto) 3.0 x10^3/uL (1.0-4.8) Monocytes # (Auto) 1.0 x10^3/uL (0.0-1.1) Eosinophils # (Auto) 0.4 x10^3/uL (0.0-0.7) Basophils # (Auto) 0.0 x10^3/uL (0.0-0.2) Sodium Level 143 mmol/L (136-145) Potassium Level 4.1 mmol/L (3.5-5.1) Chloride Level 109 mmol/L (98-107) Carbon Dioxide Level 23 mmol/L (21-32) Anion Gap 11 (6-14) Blood Urea Nitrogen 35 mg/dL (8-26) Creatinine 2.6 mg/dL (0.7-1.3) Estimated GFR (Cockcroft-Gault) 28.7 BUN/Creatinine Ratio 13 (6-20) Glucose Level 91 mg/dL (70-99) Calcium Level 8.5 mg/dL (8.5-10.1) Total Bilirubin 0.3 mg/dL (0.2-1.0) Aspartate Amino Transf (AST/SGOT) 5 U/L (15-37) Alanine Aminotransferase (ALT/SGPT) 18 U/L (16-63) Alkaline Phosphatase 64 U/L (46-116) Total Protein 6.4 g/dL (6.4-8.2) Albumin 2.7 g/dL (3.4-5.0) Albumin/Globulin Ratio 0.7 (1.0-1.7) Test 05/04/21 20:29 Glucose (Fingerstick) 136 mg/dL (70-99) Laboratory Tests Test 05/04/21 20:29 Glucose (Fingerstick) 136 mg/dL (70-99) Microbiology 04/30/21 Urine Culture - Final, Complete Medications Current Medications Pantoprazole Sodium (PROTONIX VIAL for IV PUSH) 80 mg 1X ONCE IVP Last administered on 04/29/21at 21:27; Start 04/29/21 at 20:45; Stop 04/29/21 at 20:46; Status DC Pantoprazole Sodium 80 mg/ Sodium Chloride 100 ml @ 10 mls/hr Q10H IV Last administered on 04/30/21at 06:54; Start 04/29/21 at 20:45; Stop 04/30/21 at 09:28; Status DC Sodium Chloride 1,000 ml @ 1,000 mls/hr 1X ONCE IV Last administered on 04/29/21at 21:27; Start 04/29/21 at 22:00; Stop 04/29/21 at 22:59; Status DC Ondansetron HCl (Zofran) 4 mg PRN Q8HRS PRN IVP NAUSEA/VOMITING 1ST CHOICE; Start 04/29/21 at 21:45; Stop 04/30/21 at 21:44; Status DC Sodium Chloride 1,000 ml @ 75 mls/hr [id number] IV Last administered on 04/30/21at 13:48; Start 04/29/21 at 22:00; Stop 04/30/21 at 21:59; Status DC Famotidine (Pepcid) 20 mg DAILY PO Last administered on 04/30/21at 08:51; Start 04/30/21 at 09:00; Stop 04/30/21 at 09:28; Status DC Zolpidem Tartrate (Ambien) 5 mg PRN QHS PRN PO INSOMNIA; Start 04/30/21 at 08:00 Pantoprazole Sodium (Protonix) 40 mg DAILYAC PO Last administered on 05/04/21at 08:55; Start 05/01/21 at 07:30 Nystatin (Nystop) 1 john BID TP Last administered on 05/04/21at 20:51; Start 04/30/21 at 14:15 Vitamin B Complex/ Vitamin C (Fidel-Rivka) 1 tab DAILY PO Last administered on 05/04/21at 08:55; Start 05/02/21 at 09:00 Hydralazine HCl (Apresoline Inj) 10 mg PRN Q4HRS PRN IVP ELEVATED BP, SEE COMMENTS; Start 05/02/21 at 11:00 Ferrous Sulfate (Feosol) 325 mg DAILYWBKFT PO Last administered on 05/04/21at 08:55; Start 05/03/21 at 10:00 Polyethylene Glycol (miraLAX PACKET) 17 gm PRN DAILY PRN PO CONSTIPATION; Start 05/03/21 at 09:30 Ascorbic Acid (Vitamin C) 500 mg DAILY PO Last administered on 05/04/21at 08:55; Start 05/03/21 at 16:00 Nystatin (Nystop) 1 john BID TP ; Start 05/04/21 at 10:00; Stop 05/04/21 at 10:48; Status DC Active Scripts Active Reported Zofran (Ondansetron Hcl) 4 Mg Tablet 1 Tab PO PRN Q6-8HRS Senna (Sennosides) 8.8 Mg/5 Ml Syrup 8.8 Mg PO DAILY PRN Multi-Vitamin Daily (Multivitamin) 1 Each Tablet 1 Tab PO DAILY 30 Days Metformin Hcl 500 Mg Tablet 500 Mg PO TIDWMEALS Hydrochlorothiazide Tablet (Hydrochlorothiazide) 25 Mg Tablet 25 Mg PO DAILY Ferrous Sulfate 325 Mg Tablet 1 Tab PO DAILY Famotidine 20 Mg Tablet 20 Mg PO DAILY Cranberry (Cranberry Extract) 425 Mg Capsule 425 Mg PO BID Vitamin C (Ascorbic Acid) 500 Mg Capsule.er 1 Cap PO BID 30 Days Ambien (Zolpidem Tartrate) 10 Mg Tablet 10 Mg PO PRN QHS PRN Vitals/I & O Vital Sign - Last 24 Hours 05/04/21 05/04/21 05/04/21 05/04/21 11:00 15:00 19:00 20:00 Temp 98.3 98.1 98.4 98.3 98.1 98.4 Pulse 96 82 82 Resp 18 18 18 B/P (MAP) 151/63 (92) 139/58 (85) 161/69 (99) Pulse Ox 97 98 98 O2 Delivery Room Air Room Air Room Air Room Air 05/04/21 05/05/21 05/05/21 23:00 03:00 07:00 Temp 98.6 98.7 98.3 98.6 98.7 98.3 Pulse 82 82 86 Resp 18 18 18 B/P (MAP) 120/88 (99) 177/54 (95) 160/63 (95) Pulse Ox 96 99 97 O2 Delivery Room Air Room Air Room Air Intake and Output 05/04/21 05/04/21 05/05/21 15:00 23:00 07:00 Output Total 550 ml 450 ml Balance -550 ml -450 ml Nutrition Consultation Dietary Evaluation: Recommendations by RD: Dietary education by RD, Increase Calorie Intake, Protein supplementation Comments: Renal/ ADA diet Glucerna tid fidel-rivka Expected Outcomes/Goals: to meet >75% est nutrition needs Malnutrition Findings: Food and Nutrition Intake (Mod: <75% est energy req 7days Weight Status: Overweight Justicifation of Admission Dx: Justifications for Admission: Justification of Admission Dx: N/A VALERIE PARDO MD May 05, 2021 08:34
[2021-05-05] MEDS: PANTOPRAZOLE 40 MG TABLET.DR. PO SCH (08:58)
[2021-05-05] MEDS: FOLIC/VIT B COMP W-C (RENAL) TABLET. PO SCH (08:58)
[2021-05-05] MEDS: FERROUS SULFATE 325 MG TABLET. PO SCH (08:58)
[2021-05-05] MEDS: ASCORBIC ACID 500 MG TABLET PO SCH (08:58)
[2021-05-05] MEDS: NYSTATIN TOPICAL POWDER 15GM BOTTLE. TP SCH ×2 (08:59→21:00)
--- NOTE | 2021-05-05 09:19 | PDOC ---
Date of Service: DATE: 05/05/21 TIME: 09:16 Subjective: Subjective: Says he's waiting for help and he cannot call for help because he can't reach the remote (which is about half an inch from his upper left arm) because he has arthritis. Objective: Vital Signs: Vital Signs Date Time Temp Pulse Resp B/P (MAP) Pulse Ox O2 Delivery O2 Flow Rate FiO2 05/05/21 07:00 98.3 86 18 160/63 (95) 97 Room Air 98.3 Labs: Laboratory Tests Test 05/04/21 20:29 Glucose (Fingerstick) 136 mg/dL PE: GEN: NAD LUNGS: CTAB HEART: RRR ABD: S/ND/NT NEURO/PSYCH: A & O 3 A/P: EMILY/?CKD Anemia (on iron as outpt), Hemoccult negative H/o GERD, PUD - on PPI here -- Currently without GI complaints as he has been throughout this admission. Continue some sort of acid-primary mill roller. Outpt scopes. DC per primary/nephrology. Justicifation of Admission Dx: Justifications for Admission: Justification of Admission Dx: N/A TESSY MOTA May 05, 2021 09:19
[2021-05-05 09:36] LABS: CALCIUM 8.4 mg/dL (8.5-10.1); CREATININE 2.5 mg/dL (0.7-1.3); POTASSIUM 3.9 mmol/L (3.5-5.1)
[2021-05-05 11:00] VITALS: BP 134/60
--- NOTE | 2021-05-05 13:21 | PDOC ---
DATE OF SERVICE DATE: 05/05/21 TIME: 13:20 SUBJECTIVE ROS Stable, No complaints this morning OBJECTIVE Vital Signs Vital Signs Date Time Temp Pulse Resp B/P (MAP) Pulse Ox O2 Delivery O2 Flow Rate FiO2 05/05/21 11:00 98.3 86 18 134/60 (84) 97 Room Air 98.3 I & 0 Intake and Output 05/05/21 07:00 Output Total 1000 ml Balance -1000 ml Output Urine Total 1000 ml PHYSICAL EXAM Physical Exam General NAD HEEN OM moist, On RA Neck Supple Lungs CTA , non labored CV S1S2, RRR Abd Soft, NT , obese, BS + Neuro Grossly Normal, AXOx3, No focal deficit Derm No rash Ext No LE edema has Suprapubic catheter , No CVA or S tenderness Psych Cooperative , stable DIAGNOSIS/ASSESSMENT Assessment & Plan DIAGNOSIS/ASSESSMENT Assessment & Plan EMILY - Vasomotor, admitted with N/V . Stable renal function ? his baseline . Still [facility] or [facility] care, avoid Nephrotoxins, strict I/O . US No hydronephrosis. Echogenic appearance the kidneys could reflect medical renal disease. Renal Cyst - 2 simple or minimally complicated right renal cysts. renal US in 2016 Small Rt renal cyst, ? CKD baseline unknown, baseline Cr in 2013 0.8-0.9, No interval labs. 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 Renal US with Echogenic kidneys . Hx of neurogenic bladder- Suprapubic catheter present for 6 + years; reports 2/2 Dx of Cancer of Pelvis ? prostate cancer . Catheter changed on 04/12 HTN- on HCTZ per home med list . Hold HCTZ DM - On metformin at home Anemia-/ Chronic- ferrous sulfate listed in home med list COMMENT/RELEVANT DATA Meds Current Medications Medications (Trade) Dose Ordered Sig/Gail Start Time Stop Time Status Last Admin Dose Admin Ascorbic Acid (Vitamin C) 500 mg DAILY 05/03/21 16:00 05/05/21 08:58 500 MG Famotidine (Pepcid) 20 mg DAILY 04/30/21 09:00 04/30/21 09:28 DC 04/30/21 08:51 20 MG Ferrous Sulfate (Feosol) 325 mg DAILYWBKFT 05/03/21 10:00 05/05/21 08:58 325 MG Hydralazine HCl (Apresoline Inj) 10 mg PRN Q4HRS PRN 05/02/21 11:00 Nystatin (Nystop) 1 john BID 05/04/21 10:00 05/04/21 10:48 DC Ondansetron HCl (Zofran) 4 mg PRN Q8HRS PRN 04/29/21 21:45 04/30/21 21:44 DC Pantoprazole Sodium (PROTONIX VIAL for IV PUSH) 80 mg 1X ONCE 04/29/21 20:45 04/29/21 20:46 DC 04/29/21 21:27 80 MG Pantoprazole Sodium (Protonix) 40 mg DAILYAC 05/01/21 07:30 05/05/21 08:58 40 MG Pantoprazole Sodium 80 mg/ Sodium Chloride 100 ml @ 10 mls/hr Q10H 04/29/21 20:45 04/30/21 09:28 DC 04/30/21 06:54 10 MLS/HR Polyethylene Glycol (miraLAX PACKET) 17 gm PRN DAILY PRN 05/03/21 09:30 Sodium Chloride 1,000 ml @ 75 mls/hr [id number] 04/29/21 22:00 04/30/21 21:59 DC 04/30/21 13:48 75 MLS/HR Vitamin B Complex/ Vitamin C (Amber-Miles) 1 tab DAILY 05/02/21 09:00 05/05/21 08:58 1 TAB Zolpidem Tartrate (Ambien) 5 mg PRN QHS PRN 04/30/21 08:00 Lab Laboratory Tests Test 05/04/21 20:29 05/05/21 05:40 Glucose (Fingerstick) 136 mg/dL (70-99) Sodium Level 140 mmol/L (136-145) Potassium Level 3.9 mmol/L (3.5-5.1) Chloride Level 106 mmol/L (98-107) Carbon Dioxide Level 23 mmol/L (21-32) Anion Gap 11 (6-14) Blood Urea Nitrogen 36 mg/dL (8-26) Creatinine 2.5 mg/dL (0.7-1.3) Estimated GFR (Cockcroft-Gault) 30.0 Glucose Level 86 mg/dL (70-99) Calcium Level 8.4 mg/dL (8.5-10.1) Results All relevant outside records, renal labs, imaging studies, telemetry/EKG's were reviewed. Justicifation of Admission Dx: Justifications for Admission: Justification of Admission Dx: N/A ARDEN MARIE MD May 05, 2021 13:21
[2021-05-05 15:00] VITALS: BP 151/67
--- NOTE | 2021-05-05 17:00 | NUR ---
Doing well this evening. Tolerating regular diet well. Still has abdominal pain an has been taking pain medications every 4-5 hours. Heather sung'd at 1445. Has not voided at this time. Encourage to increase po fluids. Cont. monitor.
[2021-05-05 19:00] VITALS: BP 172/62
[2021-05-05 23:00] VITALS: BP 160/73
[2021-05-06 03:00] VITALS: BP 151/55
[2021-05-06] MEDS: PANTOPRAZOLE 40 MG TABLET.DR. PO SCH (06:31)
[2021-05-06 07:00] VITALS: BP 158/56
[2021-05-06 07:16] LABS: CALCIUM 8.4 mg/dL (8.5-10.1); CREATININE 2.5 mg/dL (0.7-1.3); POTASSIUM 4.3 mmol/L (3.5-5.1)
[2021-05-06] MEDS: ASCORBIC ACID 500 MG TABLET PO SCH (08:55)
[2021-05-06] MEDS: FOLIC/VIT B COMP W-C (RENAL) TABLET. PO SCH (08:55)
[2021-05-06] MEDS: FERROUS SULFATE 325 MG TABLET. PO SCH (08:55)
[2021-05-06] MEDS: NYSTATIN TOPICAL POWDER 15GM BOTTLE. TP SCH ×2 (08:58→20:48)
--- NOTE | 2021-05-06 09:16 | PDOC ---
DATE OF SERVICE DATE: 05/06/21 TIME: 09:16 SUBJECTIVE ROS Stable, No complaints this morning OBJECTIVE Vital Signs Vital Signs Date Time Temp Pulse Resp B/P (MAP) Pulse Ox O2 Delivery O2 Flow Rate FiO2 05/06/21 07:00 98.5 78 16 158/56 (90) 96 Room Air 98.5 I & 0 Intake and Output 05/06/21 07:00 Intake Total 840 ml Output Total 1650 ml Balance -810 ml Intake Oral 840 ml Output Urine Total 1650 ml # Bowel Movements 2 PHYSICAL EXAM Physical Exam General NAD HEEN OM moist, On RA Neck Supple Lungs CTA , non labored CV S1S2, RRR Abd Soft, NT , obese, BS + Neuro Grossly Normal, AXOx3, No focal deficit Derm No rash Ext No LE edema has Suprapubic catheter , No CVA or S tenderness Psych Cooperative , stable DIAGNOSIS/ASSESSMENT Assessment & Plan EMILY - Vasomotor, admitted with N/V . Stable renal function ? his baseline . [facility] or [facility] Supportive care, avoid Nephrotoxins, strict I/O . US No hydronephrosis. Echogenic appearance the kidneys could reflect medical renal disease. Renal Cyst - 2 simple or minimally complicated right renal cysts. renal US in 2016 Small Rt renal cyst, ? CKD baseline unknown, baseline Cr in 2013 0.8-0.9, No interval labs. 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 Renal US with Echogenic kidneys . Hx of neurogenic bladder- Suprapubic catheter present for 6 + years; reports 2/2 Dx of Cancer of Pelvis ? prostate cancer . Catheter changed on 04/12 HTN- on HCTZ per home med list . Hold HCTZ DM - On metformin at home Anemia-/ Chronic- ferrous sulfate listed in home med list COMMENT/RELEVANT DATA Meds Current Medications Medications (Trade) Dose Ordered Sig/Gail Start Time Stop Time Status Last Admin Dose Admin Ascorbic Acid (Vitamin C) 500 mg DAILY 05/03/21 16:00 05/06/21 08:55 500 MG Famotidine (Pepcid) 20 mg DAILY 04/30/21 09:00 04/30/21 09:28 DC 04/30/21 08:51 20 MG Ferrous Sulfate (Feosol) 325 mg DAILYWBKFT 05/03/21 10:00 05/06/21 08:55 325 MG Hydralazine HCl (Apresoline Inj) 10 mg PRN Q4HRS PRN 05/02/21 11:00 Nystatin (Nystop) 1 john BID 05/04/21 10:00 05/04/21 10:48 DC Ondansetron HCl (Zofran) 4 mg PRN Q8HRS PRN 04/29/21 21:45 04/30/21 21:44 DC Pantoprazole Sodium (PROTONIX VIAL for IV PUSH) 80 mg 1X ONCE 04/29/21 20:45 04/29/21 20:46 DC 04/29/21 21:27 80 MG Pantoprazole Sodium (Protonix) 40 mg DAILYAC 05/01/21 07:30 05/06/21 06:31 40 MG Pantoprazole Sodium 80 mg/ Sodium Chloride 100 ml @ 10 mls/hr Q10H 04/29/21 20:45 04/30/21 09:28 DC 04/30/21 06:54 10 MLS/HR Polyethylene Glycol (miraLAX PACKET) 17 gm PRN DAILY PRN 05/03/21 09:30 Sodium Chloride 1,000 ml @ 75 mls/hr [id number] 04/29/21 22:00 04/30/21 21:59 DC 04/30/21 13:48 75 MLS/HR Vitamin B Complex/ Vitamin C (Amber-Miles) 1 tab DAILY 05/02/21 09:00 05/06/21 08:55 1 TAB Zolpidem Tartrate (Ambien) 5 mg PRN QHS PRN 04/30/21 08:00 Lab Laboratory Tests Test 05/06/21 06:25 05/06/21 07:55 Sodium Level 141 mmol/L (136-145) Potassium Level 4.3 mmol/L (3.5-5.1) Chloride Level 108 mmol/L (98-107) Carbon Dioxide Level 23 mmol/L (21-32) Anion Gap 10 (6-14) Blood Urea Nitrogen 43 mg/dL (8-26) Creatinine 2.5 mg/dL (0.7-1.3) Estimated GFR (Cockcroft-Gault) 30.0 Glucose Level 105 mg/dL (70-99) Calcium Level 8.4 mg/dL (8.5-10.1) Glucose (Fingerstick) 108 mg/dL (70-99) Results All relevant outside records, renal labs, imaging studies, telemetry/EKG's were reviewed. Justicifation of Admission Dx: Justifications for Admission: Justification of Admission Dx: N/A ARDEN MARIE MD May 06, 2021 09:16
--- NOTE | 2021-05-06 09:53 | PDOC ---
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 History of Present Illness History of Present Illness Patient is an 85-year-old male [facility] due to concern for GI bleed. Patient reports that over the past week or so he has been having multiple episodes of nausea and vomiting. Unable to tolerate a notable amount of p.o. intake. Was also having diarrhea with stools darker than usual. Denying any sort of abdominal discomfort. Unknown if labs performed at his senior living however was transferred here due to concern for GI bleed. In emergency room hemoglobin was normal. He was provided Protonix and IV fluids. When evaluated at bedside this morning patient was in bed eating breakfast. Hemoglobin been stable since presentation. Found to have elevated creatinine baseline unknown to me. Consulting to GI and nephrology. He is denying any headache, vision changes, dizziness, chest pain, shortness of breath, abdominal pain, dysuria. 05/01 Evaluated at bedside, doing well this morning. Creatinine does remain elevated still. Nephrology following. 05/02 Patient seen at bedside no complaints morning. Creatinine does still remain elevated, wondering if this may be his baseline we will continue to monitor closely. Nephrology following. Plan of care discussed with bedside RN. 05/03 Patient seen at bedside no complaints morning. Creatinine does still remain elevated, Nephrology following. cr 2.6 Plan of care discussed with RN Echogenic appearance the kidneys could reflect medical renal disease. STOOL guiac neg last hgb 10.1 cr 12-13 1.6 Hx neurogenic bladder- Suprapubic catheter present for 6 years; self reports Dx of Cancer of Pelvis ? 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 Creatinine does still remain elevated, Nephrology following. cr 2.6 Plan of care discussed with RN Echogenic appearance the kidneys could reflect medical renal disease. STOOL guiac neg last hgb 10.1 cr 12-13 1.6 Hx neurogenic bladder- Suprapubic catheter present for 6 years; self reports Dx of Cancer of Pelvis ? 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 Creatinine does still remain elevated, Nephrology following. cr 2.3 Plan of care discussed with RN Echogenic appearance the kidneys could reflect medical renal disease. STOOL guiac neg last hgb 10.1 cr 12-13 1.6 Hx neurogenic bladder- Suprapubic catheter present for 6 years; self reports Dx of Cancer of Pelvis ? 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 Creatinine elevated, Nephrology following. cr 2.5 Plan of care discussed with RN Echogenic appearance the kidneys could reflect medical renal disease. STOOL guiac neg last hgb 10.1 cr 12-13 1.6 Hx neurogenic bladder- Suprapubic catheter present for 6 years; self reports Dx of Cancer of Pelvis ? 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 Creatinine elevated, Nephrology following. cr 2.5 home when ok with nephrology Plan of care discussed with RN Echogenic appearance the kidneys could reflect medical renal disease. STOOL guiac neg last hgb 10.1 cr 12-13 1.6 Hx neurogenic bladder- Suprapubic catheter present for 6 years; self reports Dx of Cancer of Pelvis ? 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 d/w RN Vitals Vitals Vital Signs Date Time Temp Pulse Resp B/P (MAP) Pulse Ox O2 Delivery O2 Flow Rate FiO2 05/06/21 07:00 98.5 78 16 158/56 (90) 96 Room Air 98.5 Physical Exam General: Alert, Oriented X3, Cooperative, No acute distress Heart: Regular rate, Normal S1, Normal S2 Lungs: Clear, Other Abdomen: Normal bowel sounds, Soft, No tenderness, No hepatosplenomegaly, No m asses Extremities: No clubbing, No cyanosis, No edema, Normal pulses Skin: No significant lesion Labs LABS OURCE: VOID ENTR: 04/30/21-[address]: DORIAN GILBERT MD [facility]: MAG DELGADILLO MD,REYMUNDO BARBOSA,BRANDI Huang MD ORDERED: URINE CULTURE Procedure Result URINE CULTURE Final Final Three or more organisms isolated. Results consistent with colonization or contamination during the collection process. Recollection recommended using a method to minimize contamination on 05/03/21 at 0736 Testing Performed by: [address] [address] For Inquires, the Physician may contact the Microbiology department at [phone] Unless otherwise specified, Testing Performed by: [address] [address] For Inquires, the Physician may contact the Microbiology department at [phone] Laboratory Tests Test 05/06/21 06:25 05/06/21 07:55 Sodium Level 141 mmol/L (136-145) Potassium Level 4.3 mmol/L (3.5-5.1) Chloride Level 108 mmol/L (98-107) Carbon Dioxide Level 23 mmol/L (21-32) Anion Gap 10 (6-14) Blood Urea Nitrogen 43 mg/dL (8-26) Creatinine 2.5 mg/dL (0.7-1.3) Estimated GFR (Cockcroft-Gault) 30.0 Glucose Level 105 mg/dL (70-99) Calcium Level 8.4 mg/dL (8.5-10.1) Glucose (Fingerstick) 108 mg/dL (70-99) Assessment and Plan Assessmemt and Plan Problems Medical Problems: (1) Nausea and vomiting Status: Acute Comment Review of Relevant I have reviewed the following items mag (where applicable) has been applied. Labs Laboratory Tests Test 05/04/21 20:29 05/05/21 05:40 05/06/21 06:25 05/06/21 07:55 Glucose (Fingerstick) 136 mg/dL (70-99) 108 mg/dL (70-99) Sodium Level 140 mmol/L (136-145) 141 mmol/L (136-145) Potassium Level 3.9 mmol/L (3.5-5.1) 4.3 mmol/L (3.5-5.1) Chloride Level 106 mmol/L (98-107) 108 mmol/L (98-107) Carbon Dioxide Level 23 mmol/L (21-32) 23 mmol/L (21-32) Anion Gap 11 (6-14) 10 (6-14) Blood Urea Nitrogen 36 mg/dL (8-26) 43 mg/dL (8-26) Creatinine 2.5 mg/dL (0.7-1.3) 2.5 mg/dL (0.7-1.3) Estimated GFR (Cockcroft-Gault) 30.0 30.0 Glucose Level 86 mg/dL (70-99) 105 mg/dL (70-99) Calcium Level 8.4 mg/dL (8.5-10.1) 8.4 mg/dL (8.5-10.1) Laboratory Tests Test 05/06/21 06:25 05/06/21 07:55 Sodium Level 141 mmol/L (136-145) Potassium Level 4.3 mmol/L (3.5-5.1) Chloride Level 108 mmol/L (98-107) Carbon Dioxide Level 23 mmol/L (21-32) Anion Gap 10 (6-14) Blood Urea Nitrogen 43 mg/dL (8-26) Creatinine 2.5 mg/dL (0.7-1.3) Estimated GFR (Cockcroft-Gault) 30.0 Glucose Level 105 mg/dL (70-99) Calcium Level 8.4 mg/dL (8.5-10.1) Glucose (Fingerstick) 108 mg/dL (70-99) Microbiology 04/30/21 Urine Culture - Final, Complete Medications Current Medications Pantoprazole Sodium (PROTONIX VIAL for IV PUSH) 80 mg 1X ONCE IVP Last administered on 04/29/21at 21:27; Start 04/29/21 at 20:45; Stop 04/29/21 at 20:46; Status DC Pantoprazole Sodium 80 mg/ Sodium Chloride 100 ml @ 10 mls/hr Q10H IV Last administered on 04/30/21at 06:54; Start 04/29/21 at 20:45; Stop 04/30/21 at 09:28; Status DC Sodium Chloride 1,000 ml @ 1,000 mls/hr 1X ONCE IV Last administered on 04/29/21at 21:27; Start 04/29/21 at 22:00; Stop 04/29/21 at 22:59; Status DC Ondansetron HCl (Zofran) 4 mg PRN Q8HRS PRN IVP NAUSEA/VOMITING 1ST CHOICE; Start 04/29/21 at 21:45; Stop 04/30/21 at 21:44; Status DC Sodium Chloride 1,000 ml @ 75 mls/hr [id number] IV Last administered on 04/30/21at 13:48; Start 04/29/21 at 22:00; Stop 04/30/21 at 21:59; Status DC Famotidine (Pepcid) 20 mg DAILY PO Last administered on 04/30/21at 08:51; Start 04/30/21 at 09:00; Stop 04/30/21 at 09:28; Status DC Zolpidem Tartrate (Ambien) 5 mg PRN QHS PRN PO INSOMNIA; Start 04/30/21 at 08:00 Pantoprazole Sodium (Protonix) 40 mg DAILYAC PO Last administered on 05/06/21at 06:31; Start 05/01/21 at 07:30 Nystatin (Nystop) 1 john BID TP Last administered on 05/06/21at 08:58; Start 04/30/21 at 14:15 Vitamin B Complex/ Vitamin C (Fidel-Rivka) 1 tab DAILY PO Last administered on 05/06/21at 08:55; Start 05/02/21 at 09:00 Hydralazine HCl (Apresoline Inj) 10 mg PRN Q4HRS PRN IVP ELEVATED BP, SEE COMMENTS; Start 05/02/21 at 11:00 Ferrous Sulfate (Feosol) 325 mg DAILYWBKFT PO Last administered on 05/06/21at 08:55; Start 05/03/21 at 10:00 Polyethylene Glycol (miraLAX PACKET) 17 gm PRN DAILY PRN PO CONSTIPATION; Start 05/03/21 at 09:30 Ascorbic Acid (Vitamin C) 500 mg DAILY PO Last administered on 05/06/21at 08:55; Start 05/03/21 at 16:00 Nystatin (Nystop) 1 john BID TP ; Start 05/04/21 at 10:00; Stop 05/04/21 at 10:48; Status DC Active Scripts Active Reported Zofran (Ondansetron Hcl) 4 Mg Tablet 1 Tab PO PRN Q6-8HRS Senna (Sennosides) 8.8 Mg/5 Ml Syrup 8.8 Mg PO DAILY PRN Multi-Vitamin Daily (Multivitamin) 1 Each Tablet 1 Tab PO DAILY 30 Days Metformin Hcl 500 Mg Tablet 500 Mg PO TIDWMEALS Hydrochlorothiazide Tablet (Hydrochlorothiazide) 25 Mg Tablet 25 Mg PO DAILY Ferrous Sulfate 325 Mg Tablet 1 Tab PO DAILY Famotidine 20 Mg Tablet 20 Mg PO DAILY Cranberry (Cranberry Extract) 425 Mg Capsule 425 Mg PO BID Vitamin C (Ascorbic Acid) 500 Mg Capsule.er 1 Cap PO BID 30 Days Ambien (Zolpidem Tartrate) 10 Mg Tablet 10 Mg PO PRN QHS PRN Vitals/I & O Vital Sign - Last 24 Hours 05/05/21 05/05/21 05/05/2121 11:00 15:00 19:00 20:30 Temp 98.3 97.3 98.2 98.3 97.3 98.2 Pulse 86 80 98 Resp 18 18 20 B/P (MAP) 134/60 (84) 151/67 (95) 172/62 (98) Pulse Ox 97 98 95 O2 Delivery Room Air Room Air Room Air Room Air 05/05/21 05/06/21 05/06/21 23:00 03:00 07:00 Temp 98.5 98.4 98.5 98.5 98.4 98.5 Pulse 89 83 78 Resp 20 20 16 B/P (MAP) 160/73 (102) 151/55 (87) 158/56 (90) Pulse Ox 97 97 96 O2 Delivery Room Air Room Air Room Air Intake and Output 05/05/21 05/05/21 05/06/21 15:00 23:00 07:00 Intake Total 480 ml 360 ml Output Total 100 ml 1300 ml 250 ml Balance 380 ml -940 ml -250 ml Nutrition Consultation Dietary Evaluation: Recommendations by RD: Dietary education by RD, Increase Calorie Intake, Protein supplementation Comments: Renal/ ADA diet Glucerna tid fidel-rivka Expected Outcomes/Goals: to meet >75% est nutrition needs Malnutrition Findings: Food and Nutrition Intake (Mod: <75% est energy req 7days Weight Status: Overweight Justicifation of Admission Dx: Justifications for Admission: Justification of Admission Dx: N/A VALERIE PARDO MD May 06, 2021 09:53
--- NOTE | 2021-05-06 10:33 | PDOC ---
Date of Service: DATE: 05/06/21 TIME: 10:30 Subjective: Subjective: Eating breakfast, no GI complaints. Objective: Objective: 2 stools charted. Vital Signs: Vital Signs Date Time Temp Pulse Resp B/P (MAP) Pulse Ox O2 Delivery O2 Flow Rate FiO2 05/06/21 08:00 Room Air 05/06/21 07:00 98.5 78 16 158/56 (90) 96 98.5 Labs: Laboratory Tests Test 05/06/21 06:25 05/06/21 07:55 Sodium Level 141 mmol/L Potassium Level 4.3 mmol/L Chloride Level 108 mmol/L Carbon Dioxide Level 23 mmol/L Anion Gap 10 Blood Urea Nitrogen 43 mg/dL Creatinine 2.5 mg/dL Estimated GFR (Cockcroft-Gault) 30.0 Glucose Level 105 mg/dL Calcium Level 8.4 mg/dL Glucose (Fingerstick) 108 mg/dL PE: GEN: NAD LUNGS: CTAB HEART: RRR ABD: S/ND/NT NEURO/PSYCH: A & O 3 A/P: EMILY/?CKD, neurogenic bladder w/ SPC Anemia (on iron as outpt), Hemoccult negative H/o GERD, PUD - on PPI here ?vomiting - vague history/prior to admission and none since COVID negative -- We will plan for outpt scopes. Awaiting DC plans. Justicifation of Admission Dx: Justifications for Admission: Justification of Admission Dx: N/A TESSY MOTA May 06, 2021 10:33
[2021-05-06 11:06] VITALS: BP 143/58
--- NOTE | 2021-05-06 11:35 | NUR ---
spoke with daughter; given an update
[2021-05-06 15:00] VITALS: BP 147/42
[2021-05-06 19:00] VITALS: BP 149/74
[2021-05-06 23:00] VITALS: BP 145/70
[2021-05-07 03:00] VITALS: BP 154/58
[2021-05-07] MEDS: PANTOPRAZOLE 40 MG TABLET.DR. PO SCH (06:54)
[2021-05-07 07:15] VITALS: BP 117/44
[2021-05-07 07:35] LABS: BASO % 0 % (0-3); EOS # 0.4 x10^3/uL (0.0-0.7); EOS % 5 % (0-3); HEMATOCRIT 26.6 % (39.0-53.0); HEMOGLOBIN 9.1 g/dL (13.0-17.5); LYMPH # 2.4 x10^3/uL (1.0-4.8); LYMPH % 30 % (24-48); MEAN CORPUSCULAR HEMOGLOBIN 31 pg (25-35); MEAN CORPUSCULAR HGB CONC 34 g/dL (31-37); MEAN CORPUSCULAR VOLUME 92 fL (79-100); MONO # 0.8 x10^3/uL (0.0-1.1); MONO % 11 % (0-9); NEUT # 4.3 x10^3/uL (1.8-7.7); NEUT % 54 % (31-73); PLATELET COUNT 196 x10^3/uL (140-400); RED CELL DISTRIBUTION WIDTH 14.7 % (11.5-14.5); WHITE BLOOD COUNT 7.9 x10^3/uL (4.0-11.0)
[2021-05-07 08:06] LABS: ALBUMIN 2.8 g/dL (3.4-5.0); CALCIUM 8.5 mg/dL (8.5-10.1); CREATININE 2.4 mg/dL (0.7-1.3); GFR 31.4; PHOSPHORUS 3.6 mg/dL (2.6-4.7); POTASSIUM 4.2 mmol/L (3.5-5.1)
[2021-05-07] MEDS: ASCORBIC ACID 500 MG TABLET PO SCH (08:50)
[2021-05-07] MEDS: FERROUS SULFATE 325 MG TABLET. PO SCH (08:50)
[2021-05-07] MEDS: NYSTATIN TOPICAL POWDER 15GM BOTTLE. TP SCH (08:50)
[2021-05-07] MEDS: FOLIC/VIT B COMP W-C (RENAL) TABLET. PO SCH (08:50)
--- NOTE | 2021-05-07 10:03 | PDOC ---
Date of Service: DATE: 05/07/21 TIME: 10:01 Subjective: Subjective: No complaints when I saw earlier this morning - focused on breakfast and tv. Objective: Vital Signs: Vital Signs Date Time Temp Pulse Resp B/P (MAP) Pulse Ox O2 Delivery O2 Flow Rate FiO2 05/07/21 07:15 97.9 76 18 117/44 (68) 95 Room Air 97.9 Labs: Laboratory Tests Test 05/06/21 11:29 05/06/21 17:10 05/06/21 20:19 05/07/21 06:00 Glucose (Fingerstick) 184 mg/dL 106 mg/dL 128 mg/dL White Blood Count 7.9 x10^3/uL Red Blood Count 2.90 x10^6/uL Hemoglobin 9.1 g/dL Hematocrit 26.6 % Mean Corpuscular Volume 92 fL Mean Corpuscular Hemoglobin 31 pg Mean Corpuscular Hemoglobin Concent 34 g/dL Red Cell Distribution Width 14.7 % Platelet Count 196 x10^3/uL Neutrophils (%) (Auto) 54 % Lymphocytes (%) (Auto) 30 % Monocytes (%) (Auto) 11 % Eosinophils (%) (Auto) 5 % Basophils (%) (Auto) 0 % Neutrophils # (Auto) 4.3 x10^3/uL Lymphocytes # (Auto) 2.4 x10^3/uL Monocytes # (Auto) 0.8 x10^3/uL Eosinophils # (Auto) 0.4 x10^3/uL Basophils # (Auto) 0.0 x10^3/uL Sodium Level 141 mmol/L Potassium Level 4.2 mmol/L Chloride Level 107 mmol/L Carbon Dioxide Level 24 mmol/L Anion Gap 10 Blood Urea Nitrogen 42 mg/dL Creatinine 2.4 mg/dL Estimated GFR (Cockcroft-Gault) 31.4 Glucose Level 97 mg/dL Calcium Level 8.5 mg/dL Phosphorus Level 3.6 mg/dL Albumin 2.8 g/dL PE: GEN: NAD LUNGS: CTAB HEART: RRR ABD: S/ND/NT NEURO/PSYCH: A & O 3 A/P: EMILY/?CKD Anemia, no obvious GI bleeding H/o GERD, PUD COVID negative -- Continue PPI and iron. DC per primary. Consider outpt EGD and colonoscopy. Justicifation of Admission Dx: Justifications for Admission: Justification of Admission Dx: N/A TESSY MOTA May 07, 2021 10:03
--- NOTE | 2021-05-07 10:11 | PDOC ---
DATE OF SERVICE DATE: 05/07/21 TIME: 10:10 SUBJECTIVE ROS Stable, No complaints this morning OBJECTIVE Vital Signs Vital Signs Date Time Temp Pulse Resp B/P (MAP) Pulse Ox O2 Delivery O2 Flow Rate FiO2 05/07/21 07:15 97.9 76 18 117/44 (68) 95 Room Air 97.9 I & 0 Intake and Output 05/07/21 07:00 Intake Total 1150 ml Output Total 1650 ml Balance -500 ml Intake Oral 1150 ml Output Urine Total 1650 ml # Bowel Movements 1 PHYSICAL EXAM Physical Exam General NAD HEEN OM moist, On RA Neck Supple Lungs CTA , non labored CV S1S2, RRR Abd Soft, NT , obese, BS + Neuro Grossly Normal, AXOx3, No focal deficit Derm No rash Ext No LE edema has Suprapubic catheter , No CVA or S tenderness Psych Cooperative , stable DIAGNOSIS/ASSESSMENT Assessment & Plan EMILY - Vasomotor, admitted with N/V . Stable renal function ? his baseline . [facility] or [facility] Supportive care, avoid Nephrotoxins, strict I/O . US No hydronephrosis. Echogenic appearance the kidneys could reflect medical renal disease. Renal Cyst - 2 simple or minimally complicated right renal cysts. renal US in 2016 Small Rt renal cyst, ? CKD baseline unknown, baseline Cr in 2013 0.8-0.9, No interval labs. 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 Renal US with Echogenic kidneys . Hx of neurogenic bladder- Suprapubic catheter present for 6 + years; reports 2/2 Dx of Cancer of Pelvis ? prostate cancer . Catheter changed on 04/12 HTN- on HCTZ per home med list . Hold HCTZ DM - On metformin at home Anemia-/ Chronic- ferrous sulfate listed in home med list DC per Primary , fu with [facility] COMMENT/RELEVANT DATA Meds Current Medications Medications (Trade) Dose Ordered Sig/Gail Start Time Stop Time Status Last Admin Dose Admin Ascorbic Acid (Vitamin C) 500 mg DAILY 05/03/21 16:00 05/07/21 08:50 500 MG Famotidine (Pepcid) 20 mg DAILY 04/30/21 09:00 04/30/21 09:28 DC 04/30/21 08:51 20 MG Ferrous Sulfate (Feosol) 325 mg BID 05/07/21 21:00 UNV Hydralazine HCl (Apresoline Inj) 10 mg PRN Q4HRS PRN 05/02/21 11:00 Nystatin (Nystop) 1 john BID 05/04/21 10:00 05/04/21 10:48 DC Ondansetron HCl (Zofran) 4 mg PRN Q8HRS PRN 04/29/21 21:45 04/30/21 21:44 DC Pantoprazole Sodium (PROTONIX VIAL for IV PUSH) 80 mg 1X ONCE 04/29/21 20:45 04/29/21 20:46 DC 04/29/21 21:27 80 MG Pantoprazole Sodium (Protonix) 40 mg DAILYAC 05/01/21 07:30 05/07/21 06:54 40 MG Pantoprazole Sodium 80 mg/ Sodium Chloride 100 ml @ 10 mls/hr Q10H 04/29/21 20:45 04/30/21 09:28 DC 04/30/21 06:54 10 MLS/HR Polyethylene Glycol (miraLAX PACKET) 17 gm PRN DAILY PRN 05/03/21 09:30 Sodium Chloride 1,000 ml @ 75 mls/hr [id number] 04/29/21 22:00 04/30/21 21:59 DC 04/30/21 13:48 75 MLS/HR Vitamin B Complex/ Vitamin C (Amber-Miles) 1 tab DAILY 05/02/21 09:00 05/07/21 08:50 1 TAB Zolpidem Tartrate (Ambien) 5 mg PRN QHS PRN 04/30/21 08:00 Lab Laboratory Tests Test 05/06/21 11:29 05/06/21 17:10 05/06/21 20:19 05/07/21 06:00 Glucose (Fingerstick) 184 mg/dL (70-99) 106 mg/dL (70-99) 128 mg/dL (70-99) White Blood Count 7.9 x10^3/uL (4.0-11.0) Red Blood Count 2.90 x10^6/uL (4.30-5.70) Hemoglobin 9.1 g/dL (13.0-17.5) Hematocrit 26.6 % (39.0-53.0) Mean Corpuscular Volume 92 fL (79-100) Mean Corpuscular Hemoglobin 31 pg (25-35) Mean Corpuscular Hemoglobin Concent 34 g/dL (31-37) Red Cell Distribution Width 14.7 % (11.5-14.5) Platelet Count 196 x10^3/uL (140-400) Neutrophils (%) (Auto) 54 % (31-73) Lymphocytes (%) (Auto) 30 % (24-48) Monocytes (%) (Auto) 11 % (0-9) Eosinophils (%) (Auto) 5 % (0-3) Basophils (%) (Auto) 0 % (0-3) Neutrophils # (Auto) 4.3 x10^3/uL (1.8-7.7) Lymphocytes # (Auto) 2.4 x10^3/uL (1.0-4.8) Monocytes # (Auto) 0.8 x10^3/uL (0.0-1.1) Eosinophils # (Auto) 0.4 x10^3/uL (0.0-0.7) Basophils # (Auto) 0.0 x10^3/uL (0.0-0.2) Sodium Level 141 mmol/L (136-145) Potassium Level 4.2 mmol/L (3.5-5.1) Chloride Level 107 mmol/L (98-107) Carbon Dioxide Level 24 mmol/L (21-32) Anion Gap 10 (6-14) Blood Urea Nitrogen 42 mg/dL (8-26) Creatinine 2.4 mg/dL (0.7-1.3) Estimated GFR (Cockcroft-Gault) 31.4 Glucose Level 97 mg/dL (70-99) Calcium Level 8.5 mg/dL (8.5-10.1) Phosphorus Level 3.6 mg/dL (2.6-4.7) Albumin 2.8 g/dL (3.4-5.0) Results All relevant outside records, renal labs, imaging studies, telemetry/EKG's were reviewed. Justicifation of Admission Dx: Justifications for Admission: Justification of Admission Dx: N/A ARDEN MARIE MD May 07, 2021 10:11
[2021-05-07 11:00] VITALS: BP 128/60
--- NOTE | 2021-05-07 12:26 | SNU/HH DC ---
DISCHARGE ORDERS DISCHARGE INFORMATION: FINAL DIAGNOSIS Problems Medical Problems: (1) Nausea and vomiting Status: Acute CONDITION ON DISCHARGE: Stable CODE STATUS: Code Status: Full RESIDENTIAL: SNF STAY <30 DAYS: No HOSPICE: HOSPICE: No HOSPICE EVAL & TREAT: No LTAC: ADMIT TO LTAC: No POST DISCHARGE ORDERS: DIET AFTER DISCHARGE: Cardiac DISCHARGE MEDICATIONS: Home Meds Reported Medications Ondansetron Hcl (ZOFRAN) 4 Mg Tablet, 1 TAB PO PRN Q6-8HRS for nausea, #5 TAB 04/30/21 Sennosides (SENNA) 8.8 Mg/5 Ml Syrup, 8.8 MG PO DAILY PRN for CONSTIPATION, MISC 04/30/21 Multivitamin (MULTI-VITAMIN DAILY) 1 Each Tablet, 1 TAB PO DAILY for supplement for 30 Days, #30 TAB 0 Refills 04/30/21 Metformin Hcl (METFORMIN HCL) 500 Mg Tablet, 500 MG PO TIDWMEALS for ANTI- DIABETIC, TAB 0 Refills 04/30/21 Hydrochlorothiazide (HYDROCHLOROTHIAZIDE TABLET ) 25 Mg Tablet, 25 MG PO DAILY for DIURETIC, TAB 0 Refills 04/30/21 Ferrous Sulfate (FERROUS SULFATE) 325 Mg Tablet, 1 TAB PO DAILY for anemia, #30 TAB 3 Refills 04/30/21 Famotidine (FAMOTIDINE) 20 Mg Tablet, 20 MG PO DAILY for indigestion, TAB 04/30/21 Cranberry Extract (CRANBERRY) 425 Mg Capsule, 425 MG PO BID for urine retention, CAP 04/30/21 Ascorbic Acid (VITAMIN C) 500 Mg Capsule.er, 1 CAP PO BID for wound healing for 30 Days, #60 CAP 0 Refills 04/30/21 Zolpidem Tartrate (AMBIEN) 10 Mg Tablet, 10 MG PO PRN QHS PRN for INSOMNIA, TAB 0 Refills 04/30/21 Discontinued Reported Medications Enoxaparin Sodium (ENOXAPARIN SODIUM) 40 Mg/0.4 Ml Disp.syrin, 40 MG SQ BID 08/26/13 Dronabinol (MARINOL) 2.5 Mg Capsule, 2.5 MG PO BID 08/26/13 Docusate Sodium (DOCUSATE SODIUM) 100 Mg Capsule, 100 MG PO BID 08/26/13 JESUS MANUEL MONROE III DO May 07, 2021 12:26
--- NOTE | 2021-05-07 12:50 | PDOC ---
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 Chart reviewed. Discussed with RN. Pt appears comfortable and open for conversation during interview. Pt states that his R inguinal hernia has been present for 17 years. 05/06 Patient seen at bedside no complaints morning. Creatinine elevated, Nephrology following. cr 2.5 home when ok with nephrology Plan of care discussed with RN Echogenic appearance the kidneys could reflect medical renal disease. STOOL guiac neg last hgb 10.1 cr 12-13 1.6 Hx neurogenic bladder- Suprapubic catheter present for 6 years; self reports Dx of Cancer of Pelvis ? prostate cancer temporary dialysis cath in 2012 when here for sepsis "Dark stool" and vomiting - SURGICAL PROCESSOR D/W RN follows at [facility], no knowledge of Dx of CKD, NO human resources professional d/w RN 05/05 Patient seen at bedside no complaints morning. Creatinine elevated, Nephrology following. cr 2.5 Plan of care discussed with RN Echogenic appearance the kidneys could reflect medical renal disease. STOOL guiac neg last hgb 10.1 cr 12-13 1.6 Hx neurogenic bladder- Suprapubic catheter present for 6 years; self reports Dx of Cancer of Pelvis ? prostate cancer temporary dialysis cath in 2012 when here for sepsis "Dark stool" and vomiting - SURGICAL PROCESSOR D/W RN follows at [facility], no knowledge of Dx of CKD, NO human resources professional d/w RN 05/04 Patient seen at bedside no complaints morning. Creatinine does still remain elevated, Nephrology following. cr 2.3 Plan of care discussed with RN Echogenic appearance the kidneys could reflect medical renal disease. STOOL guiac neg last hgb 10.1 cr 12-13 1.6 Hx neurogenic bladder- Suprapubic catheter present for 6 years; self reports Dx of Cancer of Pelvis ? prostate cancer temporary dialysis cath in 2012 when here for sepsis "Dark stool" and vomiting - SURGICAL PROCESSOR follows at [facility], no knowledge of Dx of CKD, NO human resources professional d/w RN 05/03 Patient seen at bedside no complaints morning. Creatinine does still remain elevated, Nephrology following. cr 2.6 Plan of care discussed with RN Echogenic appearance the kidneys could reflect medical renal disease. STOOL guiac neg last hgb 10.1 cr 12-13 1.6 Hx neurogenic bladder- Suprapubic catheter present for 6 years; self reports Dx of Cancer of Pelvis ? prostate cancer temporary dialysis cath in 2012 when here for sepsis "Dark stool" and vomiting - SURGICAL PROCESSOR follows at [facility], no knowledge of Dx of CKD, NO human resources professional 05/02 Patient seen at bedside no complaints morning. Creatinine does still remain elevated, wondering if this may be his baseline we will continue to monitor closely. Nephrology following. Plan of care discussed with bedside RN. 05/01 Evaluated at bedside, doing well this morning. Creatinine does remain elevated still. Nephrology following. Vitals/I&O Vitals/I&O: Vital Signs Date Time Temp Pulse Resp B/P (MAP) Pulse Ox O2 Delivery O2 Flow Rate FiO2 05/07/21 11:00 98.7 95 20 128/60 (82) 95 Room Air 98.7 I & O 05/06/21 05/06/21 05/07/21 15:00 23:00 07:00 Intake Total 1150 ml Output Total 1200 ml 450 ml Balance -50 ml -450 ml Physical Exam Physical Exam: Pt comfortable in NAD. General: Alert, Oriented X3, Cooperative, No acute distress Heart: Regular rate, Normal S1, Normal S2 Lungs: Clear, Other Abdomen: Normal bowel sounds, Soft, No tenderness, No hepatosplenomegaly, Other (R inguinal hernia noted to scrotum that is chronic per pt, reducible, no overlying skin color changes, and non TTP) Extremities: No clubbing, No cyanosis, No edema, Normal pulses Skin: No significant lesion, Other (Suprapubic Catheter is in place, CDI, with straw colored urine) Labs Labs: Laboratory Tests Test 05/06/21 17:10 05/06/21 20:19 05/07/21 06:00 05/07/21 11:56 Glucose (Fingerstick) 106 mg/dL (70-99) 128 mg/dL (70-99) 179 mg/dL (70-99) White Blood Count 7.9 x10^3/uL (4.0-11.0) Red Blood Count 2.90 x10^6/uL (4.30-5.70) Hemoglobin 9.1 g/dL (13.0-17.5) Hematocrit 26.6 % (39.0-53.0) Mean Corpuscular Volume 92 fL (79-100) Mean Corpuscular Hemoglobin 31 pg (25-35) Mean Corpuscular Hemoglobin Concent 34 g/dL (31-37) Red Cell Distribution Width 14.7 % (11.5-14.5) Platelet Count 196 x10^3/uL (140-400) Neutrophils (%) (Auto) 54 % (31-73) Lymphocytes (%) (Auto) 30 % (24-48) Monocytes (%) (Auto) 11 % (0-9) Eosinophils (%) (Auto) 5 % (0-3) Basophils (%) (Auto) 0 % (0-3) Neutrophils # (Auto) 4.3 x10^3/uL (1.8-7.7) Lymphocytes # (Auto) 2.4 x10^3/uL (1.0-4.8) Monocytes # (Auto) 0.8 x10^3/uL (0.0-1.1) Eosinophils # (Auto) 0.4 x10^3/uL (0.0-0.7) Basophils # (Auto) 0.0 x10^3/uL (0.0-0.2) Sodium Level 141 mmol/L (136-145) Potassium Level 4.2 mmol/L (3.5-5.1) Chloride Level 107 mmol/L (98-107) Carbon Dioxide Level 24 mmol/L (21-32) Anion Gap 10 (6-14) Blood Urea Nitrogen 42 mg/dL (8-26) Creatinine 2.4 mg/dL (0.7-1.3) Estimated GFR (Cockcroft-Gault) 31.4 Glucose Level 97 mg/dL (70-99) Calcium Level 8.5 mg/dL (8.5-10.1) Phosphorus Level 3.6 mg/dL (2.6-4.7) Albumin 2.8 g/dL (3.4-5.0) Review of Systems Review of Systems: Nausea Anemia Assessment and Plan Assessmemt and Plan Problems Medical Problems: (1) Nausea and vomiting Status: Acute Upper GI Bleed Anemia EMILY CKD Stage 4 UTI Neurogenic Bladder s/p suprapubic catheter 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 Justifications for Admission Other Justification JESUS MANUEL MONROE III DO May 07, 2021 12:50
--- NOTE | 2021-05-07 13:20 | DS ---
DATE OF DISCHARGE: 05/07/2021 ADMISSION DIAGNOSIS: GI bleed and acute renal failure. DISCHARGE DIAGNOSES: Resolving GI bleed, resolving renal failure, history of gastroesophageal reflux disease, anemia, diabetes, hypertension, insomnia. CONSULTS: GI and Nephrology. PROCEDURES: None. HOSPITAL COURSE: The patient is a pleasant middle-aged male who presented with some GI bleeding and he was guaiac positive at first. His hemoglobin was 10.8 when he arrived, it has dropped down to 9.1, but has stabilized. His creatinine was 2.6. It seems to have plateaued at 2.4 and that is apparently his baseline. Overall, he looks good today. I saw and examined him. 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 We plan to discharge with close outpatient followup. DISPOSITION: Home. ACTIVITY: As tolerated. DIET: Low sodium. MEDICATIONS: Pepcid 20 b.i.d., iron 325 a day, cranberry extract, vitamin C, hydrochlorothiazide 25 a day, Ambien 10 at bedtime, senna and p.r.n. Zofran. TOTAL TIME: 33 minutes. OMAR/SHIREEN/GREGG DR: OMAR/brooke TID: [id number]
[2021-05-07 14:53] VITALS: BP 153/60
[2021-05-07 15:13] LABS: COMMENT IMMUNOFIX SERUM Note: (.); IMMUNOGLOBULIN A 220 mg/dL (61-437); IMMUNOGLOBULIN G 707 mg/dL (603-1613); IMMUNOGLOBULIN M 65 mg/dL (15-143)
--- NOTE | 2021-05-07 15:50 | NUR ---
Wound Care Wound Type/Assessment: Pt seen for wound care follow up to eval and treat R groin wound. Scrotum is enlarged, but not indurated, as well as a large, soft mass in the R inguinal area. Pt states that the mass and R groin wound have been present for around 3 years, and have remained unchanged, and are not causing any discomfort or impairing his quality of life. R groin wound is red moist, and granulated, superficial and clean. The origin of the wound is unknown due to the length of time it has been present, although it is suspected that it likely started as intertrigo and/or pressure from scrotum, and never healed properly. No other wounds noted on head to toe. Treatment Recommendations/Plan: R groin: Cleanse and dry. Apply nystatin powder to groin folds BID and place Aquacel AG strip to manage moisture. AG also cut and placed around suprapubic tubing to help with moisture management, as there is some hypergranulated tissue present. Education provided: Educated on new dressing and pressure ulcer prevention. Offloading surface/device: Purple wedge, turned Left. Heels floated on pillows. Pt had large BM, wilian area cleaned and Calazime cream applied. Recommended Referrals/Tests: NA Discharge Recommendations for dressings: see treatment plan above
[2021-05-07] MEDS ORDERED: FERROUS SULFATE 325 MG TABLET. PO SCH (17:00)
--- NOTE | 2021-05-07 17:29 | NUR ---
Patient discharge back to [facility] today via stretcher and accompanied by transporter. Patient is stable, IV removed, and discharge packet given to transporter. Nursing report was called to shelter and the nurse taking report was Haydee SARMIENTO.
== END 2021-05-07 17:33 | DRG 377 ==
LOC: ER 18:08 → OBSVTOIN 21:40 → ED HOLD 21:40 → 4 NORTH 22:44
PROVIDERS: ADMIT Internal Medicine; ATTEND Internal Medicine
DX: K92.2 Gastrointestinal hemorrhage, unspecified (principal); N17.0 Acute kidney failure with tubular necrosis; N18.4 Chronic kidney disease, stage 4 (severe); N39.0 Urinary tract infection, site not specified; D50.0 Iron deficiency anemia secondary to blood loss (chronic); E11.22 Type 2 diabetes mellitus with diabetic chronic kidney disease; E78.5 Hyperlipidemia, unspecified; E86.0 Dehydration; I12.9 Hypertensive chronic kidney disease with stage 1 through stage 4 chronic kidney disease, or unspecified chronic kidney disease; J44.9 Chronic obstructive pulmonary disease, unspecified; N28.1 Cyst of kidney, acquired; N31.9 Neuromuscular dysfunction of bladder, unspecified; Z20.822 Contact with and (suspected) exposure to COVID-19; Z85.46 Personal history of malignant neoplasm of prostate; Z87.11 Personal history of peptic ulcer disease; Z87.19 Personal history of other diseases of the digestive system; G47.00 Insomnia, unspecified; K21.9 Gastro-esophageal reflux disease without esophagitis; M19.90 Unspecified osteoarthritis, unspecified site; Z88.8 Allergy status to other drugs, medicaments and biological substances; Z91.048 Other nonmedicinal substance allergy status; Z86.14 Personal history of Methicillin resistant Staphylococcus aureus infection; D64.9 Anemia, unspecified; I69.344 Monoplegia of lower limb following cerebral infarction affecting left non-dominant side; I69.341 Monoplegia of lower limb following cerebral infarction affecting right dominant side
CPT/HCPCS: 36415; 76770; 80048; 80053; 80069; 81001; 82274; 82607; 82784; 82962; 83540; 83550; 84484; 85025; 85045; 86334; 86335; 86850; 86900; 86901; 87086; 93005; 96361; 96374; C9113; J7030; U0003; U0005; 99285-25; G0378